=== PATIENT | female | born 1940 | race African-American/Black ===

== ENCOUNTER 2017-10-20 09:48 | Inpatient (IN) ==
[2017-10-20] MEDS ORDERED: SODIUM CHLORIDE 0.9% 1,000 ML IV STA (10:37)
[2017-10-20 10:50] LABS: Basophils # 0.1 10*3/uL (0.0-0.2); Basophils % 0.5 % (0.0-0.8); Eosinophils # 0.3 10*3/uL (0.0-0.87); Eosinophils % 2.8 % (0.00-10.9); Hematocrit 39.3 VOL% (35.7-47.0); Hemoglobin 13.7 GM/DL (12.0-16.0); Immature Granulocytes % 0.3 %; Immature Granulocytes Absolute 0.03 #; Lymphocytes # 2.5 10*3/uL (1.4-4.0); Mean Corpuscular HGB Conc 34.9 GM/DL (32-36); Mean Corpuscular Hemoglobin 28 PG (27-34); Mean Corpuscular Volume 80.5 FL (87-102); Monocytes # 0.7 10*3/uL (0.11-0.8); Monocytes % 6.4 % (1.7-12.7); Neutrophils # 6.9 10*3/uL (1.4-7.4); Platelet Count 206 T/CUMM (130-400); Red Blood Count 4.88 MC/CUMM (3.8-5.5); Red Cell Distribution Width 13.7 % (9.3-17.3); White Blood Count 10.4 T/CUMM (4-12)
[2017-10-20 11:04] LABS: INR 1.1; PT Patient Result 11.3 SECS; Partial Thromboplastin Time 31.2 SECS (0-40)
[2017-10-20 11:20] LABS: Bilirubin,Total 1.1 MG/DL (0.2-1.0); Osmolality,Calculated 303.4 MOS/KG (273-304); Potassium 4.1 MMOL/L (3.5-5.1); Total Protein 6.7 G/DL (6.4-8.3)
[2017-10-20 12:32] LABS: Troponin I Only < 0.015 NG/ML (0.00-0.045)
[2017-10-20 12:38] LABS: Apearance,Urine CLEAR (Clear); Bilirubin,Urine Negative (Negative); Blood, Urine Small mg/dL (Negative); Glucose,Urine (UA) >=500 mg/dL (Negative); Ketones,Urine 20 mg/dL (Negative); Nitrite,Urine Negative (Negative); Protein,Urine 100 MG/DL; RBC,Urine 2 /HPF (0-4); Urine Color Yellow (Yellow); Urine Specific Gravity 1.018 (1.001-1.035); Urine Urobilinogen < 2.0 EU/DL (0.2-1.0); WBC,Urine <1 /HPF (0-6)
[2017-10-20] MEDS ORDERED: INSULIN REGULAR 100 UNIT/ML IV STA (12:49)
[2017-10-20] MEDS ORDERED: hydrALAZINE 20 MG/1 ML VIAL IV STA (12:49)
[2017-10-20] MEDS ORDERED: INSULIN REGULAR 100 UNIT/ML ONE (13:28)
[2017-10-20] MEDS ORDERED: hydrALAZINE 20 MG/1 ML VIAL ONE (13:35)
[2017-10-20] MEDS ORDERED: DEXTROSE 50% 25 GM/50 ML VIAL IV PRN ×2 (14:19)
[2017-10-20] MEDS ORDERED: MORPHINE 2 MG/1 ML SYRINGE IV PRN (14:19)
[2017-10-20] MEDS ORDERED: ONDANSETRON 4 MG/2 ML VIAL IV PRN (14:19)
[2017-10-20] MEDS ORDERED: DOCUSATE SODIUM 100 MG CAPSULE PO PRN (14:19)
[2017-10-20] MEDS ORDERED: GLUCAGON 1 MG VIAL IM PRN ×2 (14:19)
[2017-10-20] MEDS ORDERED: LACTULOSE 20 GM/30 ML UDCUP PO PRN (14:19)
[2017-10-20] MEDS ORDERED: hydrALAZINE 20 MG/1 ML VIAL IV PRN (15:05)
[2017-10-20 15:24] LABS: Magnesium 1.9 MG/DL (1.8-2.4); Thyroid Stimulating Hormone 2.18 uIU/ml (0.358-3.74)
[2017-10-20] MEDS: PANTOPRAZOLE 40 MG TABLET PO SCH (18:04)
[2017-10-20] MEDS: INSULIN LISPRO 100 UNIT/ML SUBCUT SCH ×2 (18:08→21:02)
[2017-10-20] MEDS: SODIUM CHLORIDE 0.9% 1,000 ML IV SCH (18:08)
[2017-10-20] MEDS: PRAVASTATIN 20 MG TABLET PO SCH (21:01)
[2017-10-21 06:14] LABS: Basophils % 0.3 % (0.0-0.8); Eosinophils # 0.3 10*3/uL (0.0-0.87); Eosinophils % 2.9 % (0.00-10.9); Hematocrit 33.3 VOL% (35.7-47.0); Hemoglobin 11.4 GM/DL (12.0-16.0); Immature Granulocytes % 0.3 %; Immature Granulocytes Absolute 0.03 #; Lymphocytes # 2.9 10*3/uL (1.4-4.0); Lymphocytes % 24.7 % (21.3-54.2); Mean Corpuscular HGB Conc 34.2 GM/DL (32-36); Mean Corpuscular Hemoglobin 28 PG (27-34); Mean Corpuscular Volume 81.4 FL (87-102); Mean Platelet Volume 12.4 FL (9.6-12.0); Monocytes # 0.8 10*3/uL (0.11-0.8); Monocytes % 6.7 % (1.7-12.7); Neutrophils # 7.7 10*3/uL (1.4-7.4); Neutrophils % 65.1 % (38.7-73.9); Platelet Count 177 T/CUMM (130-400); Red Blood Count 4.09 MC/CUMM (3.8-5.5); Red Cell Distribution Width 14.2 % (9.3-17.3); White Blood Count 11.9 T/CUMM (4-12)
[2017-10-21 06:59] LABS: Calcium 9.1 MG/DL (8.5-10.1); Osmolality,Calculated 291.8 MOS/KG (273-304); Potassium 3.9 MMOL/L (3.5-5.1); Risk Ratio 5.78; VLDL CHOLESTEROL 36.8 MG/DL
[2017-10-21] MEDS ORDERED: INSULIN GLARGINE 100 UNIT/ML SUBCUT SCH (09:00)
[2017-10-21] MEDS ORDERED: FUROSEMIDE 40 MG TABLET PO SCH (09:00)
[2017-10-21] MEDS: OXYBUTYNIN 5 MG TABLET PO SCH (09:03)
[2017-10-21] MEDS: LISINOPRIL 5 MG TABLET PO SCH (09:03)
[2017-10-21] MEDS: PANTOPRAZOLE 40 MG TABLET PO SCH (09:03)
[2017-10-21] MEDS: INSULIN GLARGINE 100 UNIT/ML SUBCUT SCH (09:04)
[2017-10-21] MEDS: INSULIN LISPRO 100 UNIT/ML SUBCUT SCH ×4 (09:08→21:20)
[2017-10-21] MEDS: SODIUM CHLORIDE 0.9% 1,000 ML IV SCH ×3 (09:08→16:40)
[2017-10-21] MEDS: LATANOPROST 0.005% OPH SOLN 2.5 ML BOTTLE BOTH EYES SCH (21:19)
[2017-10-21] MEDS: PRAVASTATIN 20 MG TABLET PO SCH (21:19)
[2017-10-22] MEDS: SODIUM CHLORIDE 0.9% 1,000 ML IV SCH ×3 (01:02→16:28)
[2017-10-22 05:28] LABS: Basophils # 0.1 10*3/uL (0.0-0.2); Basophils % 0.6 % (0.0-0.8); Eosinophils # 0.5 10*3/uL (0.0-0.87); Eosinophils % 4.5 % (0.00-10.9); Hematocrit 31.6 VOL% (35.7-47.0); Hemoglobin 10.6 GM/DL (12.0-16.0); Immature Granulocytes % 0.3 %; Immature Granulocytes Absolute 0.03 #; Lymphocytes # 3.3 10*3/uL (1.4-4.0); Lymphocytes % 31.7 % (21.3-54.2); Mean Corpuscular HGB Conc 33.5 GM/DL (32-36); Mean Corpuscular Hemoglobin 28 PG (27-34); Mean Corpuscular Volume 82.7 FL (87-102); Mean Platelet Volume 12.5 FL (9.6-12.0); Monocytes # 0.7 10*3/uL (0.11-0.8); Monocytes % 7.1 % (1.7-12.7); Neutrophils # 5.8 10*3/uL (1.4-7.4); Neutrophils % 55.8 % (38.7-73.9); Platelet Count 160 T/CUMM (130-400); Red Blood Count 3.82 MC/CUMM (3.8-5.5); Red Cell Distribution Width 14.1 % (9.3-17.3); White Blood Count 10.4 T/CUMM (4-12)
[2017-10-22 05:53] LABS: Calcium 7.9 MG/DL (8.5-10.1); Osmolality,Calculated 289.7 MOS/KG (273-304); Potassium 3.6 MMOL/L (3.5-5.1)
[2017-10-22] MEDS: OXYBUTYNIN 5 MG TABLET PO SCH (08:46)
[2017-10-22] MEDS: PANTOPRAZOLE 40 MG TABLET PO SCH (08:46)
[2017-10-22] MEDS: LISINOPRIL 5 MG TABLET PO SCH (08:46)
[2017-10-22] MEDS: INSULIN GLARGINE 100 UNIT/ML SUBCUT SCH (08:48)
[2017-10-22] MEDS: INSULIN LISPRO 100 UNIT/ML SUBCUT SCH ×4 (08:49→20:50)
[2017-10-22] MEDS: ACETAMINOPHEN 325 MG TABLET PO PRN (15:29)
[2017-10-22] MEDS: PRAVASTATIN 20 MG TABLET PO SCH (20:27)
[2017-10-22] MEDS: LATANOPROST 0.005% OPH SOLN 2.5 ML BOTTLE BOTH EYES SCH (20:29)
[2017-10-23] MEDS: SODIUM CHLORIDE 0.9% 1,000 ML IV SCH ×3 (01:19→17:35)
[2017-10-23 07:09] LABS: Basophils % 0.4 % (0.0-0.8); Eosinophils # 0.5 10*3/uL (0.0-0.87); Eosinophils % 4.7 % (0.00-10.9); Hematocrit 30.6 VOL% (35.7-47.0); Hemoglobin 10.2 GM/DL (12.0-16.0); Immature Granulocytes % 0.2 %; Immature Granulocytes Absolute 0.02 #; Lymphocytes % 31.8 % (21.3-54.2); Mean Corpuscular HGB Conc 33.3 GM/DL (32-36); Mean Corpuscular Hemoglobin 28 PG (27-34); Mean Corpuscular Volume 83.2 FL (87-102); Mean Platelet Volume 12.2 FL (9.6-12.0); Monocytes # 0.7 10*3/uL (0.11-0.8); Neutrophils # 5.3 10*3/uL (1.4-7.4); Neutrophils % 55.9 % (38.7-73.9); Platelet Count 159 T/CUMM (130-400); Red Blood Count 3.68 MC/CUMM (3.8-5.5); Red Cell Distribution Width 13.9 % (9.3-17.3); White Blood Count 9.5 T/CUMM (4-12)
[2017-10-23 07:34] LABS: Calcium 7.9 MG/DL (8.5-10.1); Osmolality,Calculated 288.7 MOS/KG (273-304); Potassium 3.5 MMOL/L (3.5-5.1)
[2017-10-23] MEDS: INSULIN LISPRO 100 UNIT/ML SUBCUT SCH ×4 (08:36→23:08)
[2017-10-23] MEDS: INSULIN GLARGINE 100 UNIT/ML SUBCUT SCH (09:00)
[2017-10-23] MEDS: OXYBUTYNIN 5 MG TABLET PO SCH (09:35)
[2017-10-23] MEDS: FLUCONAZOLE 100 MG TABLET PO SCH (09:35)
[2017-10-23] MEDS: PANTOPRAZOLE 40 MG TABLET PO SCH (09:35)
[2017-10-23] MEDS: LISINOPRIL 5 MG TABLET PO SCH (09:35)
[2017-10-23] MEDS: ACETAMINOPHEN 325 MG TABLET PO PRN (10:35)
[2017-10-23] MEDS ORDERED: CETIRIZINE 5 MG TABLET PO PRN (15:45)
[2017-10-23] MEDS: SODIUM CHLORIDE 0.65% NASAL SPRAY 45 ML BOTTLE BOTH NARES SCH ×2 (17:30→21:03)
[2017-10-23] MEDS: PRAVASTATIN 20 MG TABLET PO SCH (21:03)
[2017-10-23] MEDS: LATANOPROST 0.005% OPH SOLN 2.5 ML BOTTLE BOTH EYES SCH (21:03)
[2017-10-24] MEDS: SODIUM CHLORIDE 0.9% 1,000 ML IV SCH (01:35)
[2017-10-24] MEDS: PANTOPRAZOLE 40 MG TABLET PO SCH (09:02)
[2017-10-24] MEDS: OXYBUTYNIN 5 MG TABLET PO SCH (09:02)
[2017-10-24] MEDS: FLUCONAZOLE 100 MG TABLET PO SCH (09:02)
[2017-10-24] MEDS: LISINOPRIL 5 MG TABLET PO SCH (09:02)
[2017-10-24] MEDS: SODIUM CHLORIDE 0.65% NASAL SPRAY 45 ML BOTTLE BOTH NARES SCH ×2 (09:03→15:35)
[2017-10-24] MEDS: INSULIN GLARGINE 100 UNIT/ML SUBCUT SCH (09:03)
[2017-10-24] MEDS: INSULIN LISPRO 100 UNIT/ML SUBCUT SCH ×2 (09:03→15:35)
[2017-10-24 11:42] VITALS: BP 153/70
== END 2017-10-24 15:15 | disposition home health service (06) | DRG 684 ==
LOC: EDUNIT# → EDBD → N.ED 09:48 → N.EDINP 09:48 → N.2E 14:14 → SUATTDRO 16:52
PROVIDERS: ADMIT Internal Medicine; ATTEND Hospitalist

== ENCOUNTER 2017-10-30 08:44 | Observation (INO) ==
[2017-10-30 09:17] LABS: Basophils # 0.1 10*3/uL (0.0-0.2); Basophils % 0.7 % (0.0-0.8); Eosinophils # 0.1 10*3/uL (0.0-0.87); Eosinophils % 0.6 % (0.00-10.9); Hematocrit 38.4 VOL% (35.7-47.0); Hemoglobin 13.2 GM/DL (12.0-16.0); Immature Granulocytes % 0.6 %; Immature Granulocytes Absolute 0.06 #; Lymphocytes # 1.5 10*3/uL (1.4-4.0); Mean Corpuscular HGB Conc 34.4 GM/DL (32-36); Mean Corpuscular Hemoglobin 28 PG (27-34); Mean Corpuscular Volume 81.5 FL (87-102); Mean Platelet Volume 10.8 FL (9.6-12.0); Monocytes # 0.7 10*3/uL (0.11-0.8); Monocytes % 6.5 % (1.7-12.7); Neutrophils # 8.2 10*3/uL (1.4-7.4); Neutrophils % 77.6 % (38.7-73.9); Platelet Count 409 T/CUMM (130-400); Red Blood Count 4.71 MC/CUMM (3.8-5.5); Red Cell Distribution Width 15.2 % (9.3-17.3); White Blood Count 10.6 T/CUMM (4-12)
[2017-10-30] MEDS ORDERED: hydrALAZINE 20 MG/1 ML VIAL IV STA (09:44)
[2017-10-30] MEDS ORDERED: hydrALAZINE 20 MG/1 ML VIAL ONE (09:50)
[2017-10-30 09:55] LABS: Albumin 2.9 G/DL (3.4-5.0); Bilirubin,Total 0.7 MG/DL (0.2-1.0); Magnesium 1.5 MG/DL (1.8-2.4); Total Protein 6.1 G/DL (6.4-8.3)
[2017-10-30 09:56] LABS: Osmolality,Calculated 289.7 MOS/KG (273-304); Potassium 3.4 MMOL/L (3.5-5.1)
[2017-10-30 10:46] LABS: Apearance,Urine CLOUDY (Clear); Bacteria,Urine Few /HPF (Few); Bilirubin,Urine Negative (Negative); Blood, Urine Moderate mg/dL (Negative); Glucose,Urine (UA) 150 mg/dL (Negative); Ketones,Urine Negative (Negative); Mucus,Urine Occasional /LPF (Occasional); Nitrite,Urine Negative (Negative); Protein,Urine >=500 MG/DL; RBC,Urine 22 /HPF (0-4); Squamous Epithelial Cell,Urine Occasional /HPF (0-10); Urine Color Yellow (Yellow); Urine Specific Gravity 1.018 (1.001-1.035); WBC,Urine 105 /HPF (0-6)
[2017-10-30] MEDS ORDERED: DOCUSATE SODIUM 100 MG CAPSULE PO PRN (12:00)
[2017-10-30] MEDS ORDERED: ONDANSETRON 4 MG/2 ML VIAL IV PRN (12:00)
[2017-10-30] MEDS ORDERED: DEXTROSE 50% 25 GM/50 ML VIAL IV PRN (12:00)
[2017-10-30] MEDS ORDERED: ACETAMINOPHEN 325 MG TABLET PO PRN (12:00)
[2017-10-30] MEDS ORDERED: GLUCAGON 1 MG VIAL IM PRN (12:00)
[2017-10-30] MEDS ORDERED: POTASSIUM CHLORIDE 20 MEQ TABLET PO ONE (13:44)
[2017-10-31] MEDS ORDERED: PANTOPRAZOLE 40 MG TABLET PO SCH (09:00)
[2017-10-31 10:53] LABS: Calcium 8.6 MG/DL (8.5-10.1); Potassium 3.7 MMOL/L (3.5-5.1)
[2017-10-31] MEDS ORDERED: DOCUSATE SODIUM 100 MG CAPSULE PO PRN (11:15)
[2017-10-31] MEDS ORDERED: SIMETHICONE CHEW 125 MG TABLET PO PRN (11:15)
[2017-10-31] MEDS ORDERED: LISINOPRIL 5 MG TABLET PO SCH (11:30)
[2017-10-31] MEDS ORDERED: OXYBUTYNIN 5 MG TABLET PO SCH (11:30)
[2017-10-31] MEDS ORDERED: BISACODYL 5 MG TABLET PO SCH (11:30)
[2017-10-31 13:46] VITALS: BP 187/77
[2017-10-31] MEDS ORDERED: PRAVASTATIN 20 MG TABLET PO SCH (21:00)
[2017-10-31] MEDS ORDERED: LATANOPROST 0.005% OPH SOLN 2.5 ML BOTTLE BOTH EYES SCH (21:00)
== END 2017-10-31 14:55 | disposition home or self-care (01) ==
LOC: EDBD → EDUNIT# → N.ED 08:44 → INTOOBSV 10:02 → N.EDINP 10:02 → N.4E 13:22
PROVIDERS: ADMIT Internal Medicine Geriatric Medicine; ATTEND Internal Medicine Geriatric Medicine

== ENCOUNTER 2018-09-02 14:04 | Observation (INO) ==
[2018-09-02] MEDS ORDERED: DEXTROSE 5% 1,000 ML IV SCH ×2 (15:10→19:00)
[2018-09-02 16:43] LABS: Basophils % 0.4 % (0.0-0.8); Eosinophils # 0.1 10*3/uL (0.0-0.87); Eosinophils % 1.1 % (0.00-10.9); Hematocrit 41.2 VOL% (35.7-47.0); Hemoglobin 13.5 GM/DL (12.0-16.0); Immature Granulocytes % 0.3 %; Immature Granulocytes Absolute 0.03 #; Lymphocytes # 1.9 10*3/uL (1.4-4.0); Lymphocytes % 17.8 % (21.3-54.2); Mean Corpuscular HGB Conc 32.8 GM/DL (32-36); Mean Corpuscular Hemoglobin 28 PG (27-34); Mean Corpuscular Volume 85.5 FL (87-102); Monocytes # 0.5 10*3/uL (0.11-0.8); Monocytes % 4.8 % (1.7-12.7); Neutrophils % 75.6 % (38.7-73.9); Platelet Count 290 T/CUMM (130-400); Red Blood Count 4.82 MC/CUMM (3.8-5.5); Red Cell Distribution Width 14.8 % (9.3-17.3); White Blood Count 10.6 T/CUMM (4-12)
[2018-09-02 17:05] LABS: Calcium 9.8 MG/DL (8.5-10.1); Osmolality,Calculated 292.7 MOS/KG (273-304); Potassium 3.3 MMOL/L (3.5-5.1)
[2018-09-02 17:27] LABS: Apearance,Urine CLOUDY (Clear); Bacteria,Urine Occasional /HPF (Few); Bilirubin,Urine Negative (Negative); Blood, Urine Large mg/dL (Negative); Glucose,Urine (UA) Negative (Negative); Ketones,Urine Negative (Negative); Nitrite,Urine Negative (Negative); Protein,Urine >=500 MG/DL; RBC,Urine 143 /HPF (0-4); Squamous Epithelial Cell,Urine Occasional /HPF (0-10); Urine Color Yellow (Yellow); Urine Specific Gravity 1.005 (1.001-1.035); Urine Urobilinogen < 2.0 EU/DL (0.2-1.0); WBC,Urine 16 /HPF (0-6)
[2018-09-02] MEDS ORDERED: GLUCAGON 1 MG VIAL IM PRN (18:20)
[2018-09-02] MEDS ORDERED: hydrOXYzine HCL 25 MG TABLET PO PRN (18:22)
[2018-09-02] MEDS ORDERED: DOCUSATE SODIUM 100 MG CAPSULE PO PRN (18:22)
[2018-09-02] MEDS ORDERED: ACETAMINOPHEN/diphenhydrAMINE 500-25 MG TABLET PO PRN (18:22)
[2018-09-02] MEDS ORDERED: SIMETHICONE CHEW 125 MG TABLET PO PRN (18:22)
[2018-09-02] MEDS ORDERED: LISINOPRIL 10 MG TABLET PO STA (18:33)
[2018-09-02] MEDS ORDERED: POTASSIUM CHLORIDE INJ 40 MEQ in SODIUM CHLORIDE 0.45% 1,000 ML IV SCH (21:00)
[2018-09-02] MEDS ORDERED: INSULIN GLARGINE 100 UNIT/ML SUBCUT SCH (21:00)
[2018-09-02] MEDS: METOPROLOL TARTRATE 50 MG TABLET PO SCH (22:51)
[2018-09-02] MEDS: cefTRIAXone 1,000 MG in SYRINGE 1 EACH IV SCH (22:51)
[2018-09-02] MEDS: INSULIN REGULAR 100 UNIT/ML SUBCUT SCH (22:53)
[2018-09-02] MEDS: LATANOPROST 0.005% OPH SOLN 2.5 ML BOTTLE BOTH EYES SCH (23:02)
[2018-09-03] MEDS: DEXTROSE 50% 25 GM/50 ML VIAL IV PRN ×4 (00:17→09:40)
[2018-09-03 06:20] LABS: Calcium 8.7 MG/DL (8.5-10.1); Osmolality,Calculated 295.6 MOS/KG (273-304); Potassium 3.4 MMOL/L (3.5-5.1)
[2018-09-03 07:16] LABS: Basophils # 0.1 10*3/uL (0.0-0.2); Basophils % 0.6 % (0.0-0.8); Eosinophils # 0.9 10*3/uL (0.0-0.87); Eosinophils % 9.4 % (0.00-10.9); Hematocrit 29.8 VOL% (35.7-47.0); Immature Granulocytes % 0.2 %; Immature Granulocytes Absolute 0.02 #; Lymphocytes # 3.3 10*3/uL (1.4-4.0); Lymphocytes % 33.3 % (21.3-54.2); Mean Corpuscular HGB Conc 31.5 GM/DL (32-36); Mean Corpuscular Hemoglobin 27 PG (27-34); Mean Corpuscular Volume 85.4 FL (87-102); Mean Platelet Volume 11.8 FL (9.6-12.0); Monocytes # 0.7 10*3/uL (0.11-0.8); Monocytes % 6.5 % (1.7-12.7)
[2018-09-03 07:20] LABS: Hemoglobin 9.4 GM/DL (12.0-16.0); Platelet Count 219 T/CUMM (130-400); Red Blood Count 3.49 MC/CUMM (3.8-5.5)
[2018-09-03] MEDS ORDERED: POTASSIUM CHLORIDE 20 MEQ TABLET PO ONE (08:36)
[2018-09-03] MEDS: FAMOTIDINE 20 MG TABLET PO SCH (10:02)
[2018-09-03] MEDS: METOPROLOL TARTRATE 50 MG TABLET PO SCH ×2 (10:03→22:02)
[2018-09-03] MEDS: MULTIVITAMIN (CENTRUM) TABLET PO SCH (10:03)
[2018-09-03] MEDS: FUROSEMIDE 40 MG TABLET PO SCH (10:03)
[2018-09-03] MEDS: LISINOPRIL 5 MG TABLET PO SCH (10:03)
[2018-09-03] MEDS: INSULIN REGULAR 100 UNIT/ML SUBCUT SCH (10:04)
[2018-09-03] MEDS ORDERED: DEXTROSE 5% 1,000 ML IV SCH (11:00)
[2018-09-03] MEDS: cefTRIAXone 1,000 MG in SYRINGE 1 EACH IV SCH ×2 (12:50→21:52)
[2018-09-03] MEDS: hydrALAZINE 20 MG/1 ML VIAL IV PRN (15:22)
[2018-09-03] MEDS: PRAVASTATIN 20 MG TABLET PO SCH (18:08)
[2018-09-03] MEDS: LATANOPROST 0.005% OPH SOLN 2.5 ML BOTTLE BOTH EYES SCH (21:53)
[2018-09-04] MEDS: hydrALAZINE 20 MG/1 ML VIAL IV PRN ×2 (04:28→14:03)
[2018-09-04 05:26] LABS: Hemoglobin 10.3 GM/DL (12.0-16.0); Red Blood Count 3.69 MC/CUMM (3.8-5.5); White Blood Count 11.1 T/CUMM (4-12)
[2018-09-04 05:27] LABS: Basophils # 0.1 10*3/uL (0.0-0.2); Basophils % 0.6 % (0.0-0.8); Eosinophils # 1.1 10*3/uL (0.0-0.87); Eosinophils % 9.6 % (0.00-10.9); Immature Granulocytes % 0.4 %; Immature Granulocytes Absolute 0.04 #; Lymphocytes # 3.6 10*3/uL (1.4-4.0); Mean Corpuscular HGB Conc 32.2 GM/DL (32-36); Mean Corpuscular Hemoglobin 28 PG (27-34); Mean Corpuscular Volume 86.7 FL (87-102); Mean Platelet Volume 11.8 FL (9.6-12.0); Monocytes # 0.7 10*3/uL (0.11-0.8); Monocytes % 6.1 % (1.7-12.7); Neutrophils # 5.7 10*3/uL (1.4-7.4); Neutrophils % 51.3 % (38.7-73.9); Platelet Count 214 T/CUMM (130-400); Red Cell Distribution Width 15.1 % (9.3-17.3)
[2018-09-04 05:56] LABS: Osmolality,Calculated 293.1 MOS/KG (273-304); Potassium 4.1 MMOL/L (3.5-5.1)
[2018-09-04 05:57] LABS: Risk Ratio 6.2
[2018-09-04] MEDS ORDERED: MAGNESIUM SULF RIDER 4 GM in PREMIX 1 EACH IV PRN (08:44)
[2018-09-04] MEDS ORDERED: MAGNESIUM SULF RIDER 2 GM in PREMIX 1 EACH IV PRN (08:44)
[2018-09-04] MEDS: FUROSEMIDE 40 MG TABLET PO SCH (10:16)
[2018-09-04] MEDS: FAMOTIDINE 20 MG TABLET PO SCH (10:16)
[2018-09-04] MEDS: MULTIVITAMIN (CENTRUM) TABLET PO SCH (10:16)
[2018-09-04] MEDS: METOPROLOL TARTRATE 50 MG TABLET PO SCH ×2 (10:16→21:13)
[2018-09-04] MEDS: LISINOPRIL 5 MG TABLET PO SCH (10:20)
[2018-09-04] MEDS: cefTRIAXone 1,000 MG in SYRINGE 1 EACH IV SCH (10:33)
[2018-09-04] MEDS ORDERED: GLUCAGON 1 MG VIAL IM PRN (15:35)
[2018-09-04] MEDS: PRAVASTATIN 20 MG TABLET PO SCH (18:19)
[2018-09-04] MEDS: amLODIPine 5 MG TABLET PO SCH (18:19)
[2018-09-04] MEDS: INSULIN LISPRO 100 UNIT/ML SUBCUT SCH (18:20)
[2018-09-04] MEDS: LATANOPROST 0.005% OPH SOLN 2.5 ML BOTTLE BOTH EYES SCH (21:13)
[2018-09-04] MEDS: AMOXICILLIN 875 MG TABLET PO SCH (21:13)
[2018-09-05 05:39] LABS: Basophils # 0.1 10*3/uL (0.0-0.2); Basophils % 0.7 % (0.0-0.8); Eosinophils # 1.2 10*3/uL (0.0-0.87); Eosinophils % 11.2 % (0.00-10.9); Hematocrit 33.5 VOL% (35.7-47.0); Hemoglobin 10.8 GM/DL (12.0-16.0); Immature Granulocytes % 0.3 %; Immature Granulocytes Absolute 0.03 #; Lymphocytes # 3.5 10*3/uL (1.4-4.0); Lymphocytes % 33.1 % (21.3-54.2); Mean Corpuscular HGB Conc 32.2 GM/DL (32-36); Mean Corpuscular Hemoglobin 28 PG (27-34); Mean Corpuscular Volume 85.2 FL (87-102); Mean Platelet Volume 12.5 FL (9.6-12.0); Monocytes # 0.7 10*3/uL (0.11-0.8); Monocytes % 6.3 % (1.7-12.7); Neutrophils # 5.2 10*3/uL (1.4-7.4); Neutrophils % 48.4 % (38.7-73.9); Platelet Count 238 T/CUMM (130-400); Red Blood Count 3.93 MC/CUMM (3.8-5.5); Red Cell Distribution Width 14.9 % (9.3-17.3); White Blood Count 10.7 T/CUMM (4-12)
[2018-09-05 05:51] LABS: Calcium 9.2 MG/DL (8.5-10.1)
[2018-09-05] MEDS: INSULIN LISPRO 100 UNIT/ML SUBCUT SCH ×2 (08:17→12:42)
[2018-09-05 08:31] LABS: Eosinophils 14 % (0-10); Hypochromasia 1+; Lymphocytes 31 % (20-55); Segmented Neutrophils 53 % (50-85); Total Cells Counted 100
[2018-09-05 08:32] LABS: Anisocytosis 1+; Microcytosis 1+
[2018-09-05] MEDS: FAMOTIDINE 20 MG TABLET PO SCH (09:03)
[2018-09-05] MEDS: amLODIPine 5 MG TABLET PO SCH (09:04)
[2018-09-05] MEDS: METOPROLOL TARTRATE 50 MG TABLET PO SCH (09:04)
[2018-09-05] MEDS: AMOXICILLIN 875 MG TABLET PO SCH (09:04)
[2018-09-05] MEDS: LISINOPRIL 5 MG TABLET PO SCH (09:04)
[2018-09-05] MEDS: FUROSEMIDE 40 MG TABLET PO SCH (09:04)
[2018-09-05] MEDS: MULTIVITAMIN (CENTRUM) TABLET PO SCH (09:04)
[2018-09-05 15:33] VITALS: BP 141/63
== END 2018-09-05 16:00 | disposition home or self-care (01) ==
LOC: EDBD → EDUNIT# → N.EDINP 14:04 → N.ED 14:04 → SUATTDRO 18:20 → N.3E 19:58
PROVIDERS: ADMIT Internal Medicine; ATTEND Internal Medicine

== ENCOUNTER 2018-09-22 16:43 | Inpatient (IN) ==
[2018-09-22] MEDS ORDERED: DEXTROSE 50% 25 GM/50 ML SYRINGE IV ONE (16:57)
[2018-09-22] MEDS ORDERED: DEXTROSE 50% 25 GM/50 ML VIAL IV STA (17:00)
[2018-09-22 17:43] LABS: Basophils # 0.1 10*3/uL (0.0-0.2); Basophils % 0.4 % (0.0-0.8); Eosinophils # 0.6 10*3/uL (0.0-0.87); Eosinophils % 3.8 % (0.00-10.9); Hematocrit 41.3 VOL% (35.7-47.0); Hemoglobin 13.2 GM/DL (12.0-16.0); Immature Granulocytes % 0.3 %; Immature Granulocytes Absolute 0.05 #; Lymphocytes # 1.9 10*3/uL (1.4-4.0); Lymphocytes % 12.6 % (21.3-54.2); Mean Corpuscular Hemoglobin 27 PG (27-34); Mean Corpuscular Volume 85.3 FL (87-102); Mean Platelet Volume 11.9 FL (9.6-12.0); Monocytes # 0.8 10*3/uL (0.11-0.8); Monocytes % 5.5 % (1.7-12.7); Neutrophils # 11.5 10*3/uL (1.4-7.4); Neutrophils % 77.4 % (38.7-73.9); Platelet Count 343 T/CUMM (130-400); Red Blood Count 4.84 MC/CUMM (3.8-5.5); Red Cell Distribution Width 14.7 % (9.3-17.3); White Blood Count 14.9 T/CUMM (4-12)
[2018-09-22 17:58] LABS: Calcium 10.2 MG/DL (8.5-10.1); Osmolality,Calculated 293.6 MOS/KG (273-304)
[2018-09-22 18:13] LABS: Apearance,Urine CLEAR (Clear); Bilirubin,Urine Negative (Negative); Blood, Urine Small mg/dL (Negative); Glucose,Urine (UA) Negative (Negative); Ketones,Urine 5 mg/dL (Negative); Nitrite,Urine Negative (Negative); Protein,Urine >=500 MG/DL; RBC,Urine 2 /HPF (0-4); Urine Color Yellow (Yellow); Urine Urobilinogen < 2.0 EU/DL (0.2-1.0); WBC,Urine 1 /HPF (0-6)
[2018-09-22] MEDS ORDERED: DEXTROSE 5% NACL 0.45% 1,000 ML IV SCH (18:30)
[2018-09-22] MEDS ORDERED: ONDANSETRON 4 MG/2 ML VIAL IV PRN (18:37)
[2018-09-22] MEDS ORDERED: SIMETHICONE CHEW 125 MG TABLET PO PRN (18:38)
[2018-09-22] MEDS ORDERED: hydrALAZINE 20 MG/1 ML VIAL IV PRN (18:39)
[2018-09-22] MEDS ORDERED: DEXTROSE 50% 25 GM/50 ML VIAL IV PRN (18:40)
[2018-09-22] MEDS ORDERED: GLUCAGON 1 MG VIAL IM PRN (18:40)
[2018-09-22] MEDS ORDERED: LISINOPRIL 10 MG TABLET PO STA (18:44)
[2018-09-22] MEDS ORDERED: amLODIPine 5 MG TABLET PO STA (18:44)
[2018-09-22] MEDS ORDERED: INSULIN REGULAR 100 UNIT/ML SUBCUT SCH (21:00)
[2018-09-22] MEDS: LATANOPROST 0.005% OPH SOLN 2.5 ML BOTTLE BOTH EYES SCH (21:41)
[2018-09-22] MEDS: ENOXAPARIN 40 MG/0.4 ML SYRINGE SUBCUT SCH (21:42)
[2018-09-22] MEDS: INSULIN REGULAR 100 UNIT/ML SUBCUT SCH (21:44)
[2018-09-23] MEDS: INSULIN REGULAR 100 UNIT/ML SUBCUT SCH ×4 (07:48→21:32)
[2018-09-23] MEDS: MULTIVITAMIN (CENTRUM) TABLET PO SCH (08:46)
[2018-09-23] MEDS: LISINOPRIL 5 MG TABLET PO SCH (08:46)
[2018-09-23] MEDS: amLODIPine 10 MG TABLET PO SCH (08:46)
[2018-09-23] MEDS: METOPROLOL TARTRATE 50 MG TABLET PO SCH ×2 (08:48→21:32)
[2018-09-23 10:14] LABS: Basophils # 0.1 10*3/uL (0.0-0.2); Basophils % 0.6 % (0.0-0.8); Eosinophils % 9.7 % (0.00-10.9); Hematocrit 34.7 VOL% (35.7-47.0); Hemoglobin 11.1 GM/DL (12.0-16.0); Immature Granulocytes % 0.3 %; Immature Granulocytes Absolute 0.03 #; Lymphocytes # 2.4 10*3/uL (1.4-4.0); Mean Corpuscular Hemoglobin 27 PG (27-34); Mean Corpuscular Volume 85.5 FL (87-102); Mean Platelet Volume 12.1 FL (9.6-12.0); Monocytes # 0.6 10*3/uL (0.11-0.8); Monocytes % 5.8 % (1.7-12.7); Neutrophils % 59.6 % (38.7-73.9); Platelet Count 256 T/CUMM (130-400); Red Blood Count 4.06 MC/CUMM (3.8-5.5); Red Cell Distribution Width 14.8 % (9.3-17.3); White Blood Count 10.1 T/CUMM (4-12)
[2018-09-23 10:47] LABS: Calcium 9.4 MG/DL (8.5-10.1); Potassium 4.3 MMOL/L (3.5-5.1)
[2018-09-23] MEDS: PRAVASTATIN 20 MG TABLET PO SCH (17:58)
[2018-09-23] MEDS: ENOXAPARIN 40 MG/0.4 ML SYRINGE SUBCUT SCH (21:33)
[2018-09-23] MEDS: LATANOPROST 0.005% OPH SOLN 2.5 ML BOTTLE BOTH EYES SCH (21:33)
[2018-09-24] MEDS: INSULIN REGULAR 100 UNIT/ML SUBCUT SCH ×4 (10:01→21:26)
[2018-09-24] MEDS: amLODIPine 10 MG TABLET PO SCH (10:05)
[2018-09-24] MEDS: LISINOPRIL 5 MG TABLET PO SCH (10:05)
[2018-09-24] MEDS: METOPROLOL TARTRATE 50 MG TABLET PO SCH ×2 (10:05→21:26)
[2018-09-24] MEDS: MULTIVITAMIN (CENTRUM) TABLET PO SCH (10:05)
[2018-09-24] MEDS: PRAVASTATIN 20 MG TABLET PO SCH (17:22)
[2018-09-24] MEDS: ENOXAPARIN 40 MG/0.4 ML SYRINGE SUBCUT SCH (21:25)
[2018-09-24] MEDS: LATANOPROST 0.005% OPH SOLN 2.5 ML BOTTLE BOTH EYES SCH (21:26)
[2018-09-25] MEDS: INSULIN REGULAR 100 UNIT/ML SUBCUT SCH ×4 (07:27→21:36)
[2018-09-25] MEDS: LISINOPRIL 5 MG TABLET PO SCH ×2 (08:01→21:36)
[2018-09-25] MEDS: amLODIPine 10 MG TABLET PO SCH (08:02)
[2018-09-25] MEDS: METOPROLOL TARTRATE 50 MG TABLET PO SCH ×2 (08:02→21:36)
[2018-09-25] MEDS: MULTIVITAMIN (CENTRUM) TABLET PO SCH (08:02)
[2018-09-25] MEDS ORDERED: SODIUM CHLORIDE 0.45% 500 ML IV ONE (09:08)
[2018-09-25] MEDS: PRAVASTATIN 20 MG TABLET PO SCH (17:23)
[2018-09-25] MEDS: LATANOPROST 0.005% OPH SOLN 2.5 ML BOTTLE BOTH EYES SCH (21:36)
[2018-09-25] MEDS: ENOXAPARIN 40 MG/0.4 ML SYRINGE SUBCUT SCH (21:36)
[2018-09-26 04:55] LABS: Basophils # 0.1 10*3/uL (0.0-0.2); Basophils % 0.7 % (0.0-0.8); Eosinophils # 0.9 10*3/uL (0.0-0.87); Eosinophils % 8.9 % (0.00-10.9); Hematocrit 30.1 VOL% (35.7-47.0); Hemoglobin 9.6 GM/DL (12.0-16.0); Immature Granulocytes % 0.3 %; Immature Granulocytes Absolute 0.03 #; Lymphocytes # 3.3 10*3/uL (1.4-4.0); Lymphocytes % 31.9 % (21.3-54.2); Mean Corpuscular HGB Conc 31.9 GM/DL (32-36); Mean Corpuscular Hemoglobin 28 PG (27-34); Mean Corpuscular Volume 86.2 FL (87-102); Mean Platelet Volume 11.8 FL (9.6-12.0); Monocytes # 0.6 10*3/uL (0.11-0.8); Neutrophils # 5.4 10*3/uL (1.4-7.4); Neutrophils % 52.2 % (38.7-73.9); Platelet Count 259 T/CUMM (130-400); Red Blood Count 3.49 MC/CUMM (3.8-5.5); Red Cell Distribution Width 14.8 % (9.3-17.3); White Blood Count 10.4 T/CUMM (4-12)
[2018-09-26 05:20] LABS: Calcium 8.5 MG/DL (8.5-10.1); Osmolality,Calculated 296.6 MOS/KG (273-304); Potassium 3.9 MMOL/L (3.5-5.1)
[2018-09-26] MEDS: INSULIN REGULAR 100 UNIT/ML SUBCUT SCH ×4 (07:07→21:48)
[2018-09-26] MEDS: amLODIPine 10 MG TABLET PO SCH (09:18)
[2018-09-26] MEDS: MULTIVITAMIN (CENTRUM) TABLET PO SCH (09:19)
[2018-09-26] MEDS: LISINOPRIL 5 MG TABLET PO SCH (09:19)
[2018-09-26] MEDS: METOPROLOL TARTRATE 50 MG TABLET PO SCH ×2 (09:19→21:48)
[2018-09-26] MEDS: PRAVASTATIN 20 MG TABLET PO SCH (17:05)
[2018-09-26] MEDS: ENOXAPARIN 40 MG/0.4 ML SYRINGE SUBCUT SCH (21:48)
[2018-09-26] MEDS: LISINOPRIL 10 MG TABLET PO SCH (21:48)
[2018-09-26] MEDS: LATANOPROST 0.005% OPH SOLN 2.5 ML BOTTLE BOTH EYES SCH (22:46)
[2018-09-27] MEDS: INSULIN LISPRO 100 UNIT/ML SUBCUT SCH ×4 (07:53→21:43)
[2018-09-27] MEDS: METOPROLOL TARTRATE 50 MG TABLET PO SCH (09:54)
[2018-09-27] MEDS: LISINOPRIL 10 MG TABLET PO SCH ×2 (09:54→21:42)
[2018-09-27] MEDS: MULTIVITAMIN (CENTRUM) TABLET PO SCH (09:54)
[2018-09-27] MEDS: amLODIPine 10 MG TABLET PO SCH (09:55)
[2018-09-27] MEDS: PRAVASTATIN 20 MG TABLET PO SCH (16:50)
[2018-09-27] MEDS: ENOXAPARIN 40 MG/0.4 ML SYRINGE SUBCUT SCH (21:42)
[2018-09-27] MEDS: LATANOPROST 0.005% OPH SOLN 2.5 ML BOTTLE BOTH EYES SCH (21:46)
[2018-09-28 06:17] LABS: Basophils # 0.1 10*3/uL (0.0-0.2); Basophils % 0.8 % (0.0-0.8); Eosinophils # 0.9 10*3/uL (0.0-0.87); Eosinophils % 8.9 % (0.00-10.9); Hematocrit 32.7 VOL% (35.7-47.0); Hemoglobin 10.6 GM/DL (12.0-16.0); Immature Granulocytes % 0.3 %; Immature Granulocytes Absolute 0.03 #; Lymphocytes # 3.5 10*3/uL (1.4-4.0); Lymphocytes % 34.6 % (21.3-54.2); Mean Corpuscular HGB Conc 32.4 GM/DL (32-36); Mean Corpuscular Hemoglobin 28 PG (27-34); Mean Corpuscular Volume 85.2 FL (87-102); Mean Platelet Volume 11.9 FL (9.6-12.0); Monocytes # 0.7 10*3/uL (0.11-0.8); Monocytes % 6.5 % (1.7-12.7); Neutrophils # 4.9 10*3/uL (1.4-7.4); Neutrophils % 48.9 % (38.7-73.9); Platelet Count 273 T/CUMM (130-400); Red Blood Count 3.84 MC/CUMM (3.8-5.5); Red Cell Distribution Width 14.7 % (9.3-17.3)
[2018-09-28 06:40] LABS: Calcium 8.7 MG/DL (8.5-10.1); Osmolality,Calculated 296.6 MOS/KG (273-304); Potassium 3.8 MMOL/L (3.5-5.1)
[2018-09-28] MEDS: INSULIN LISPRO 100 UNIT/ML SUBCUT SCH ×4 (08:18→21:15)
[2018-09-28] MEDS: amLODIPine 10 MG TABLET PO SCH (08:19)
[2018-09-28] MEDS: LISINOPRIL 10 MG TABLET PO SCH ×2 (08:19→21:16)
[2018-09-28] MEDS: MULTIVITAMIN (CENTRUM) TABLET PO SCH (08:19)
[2018-09-28] MEDS ORDERED: METOPROLOL TARTRATE 50 MG TABLET PO SCH (09:00)
[2018-09-28] MEDS ORDERED: METOPROLOL SUCCINATE XL 50 MG TABLET PO SCH (09:00)
[2018-09-28] MEDS: PRAVASTATIN 20 MG TABLET PO SCH (17:37)
[2018-09-28] MEDS: LATANOPROST 0.005% OPH SOLN 2.5 ML BOTTLE BOTH EYES SCH (21:15)
[2018-09-28] MEDS: ENOXAPARIN 40 MG/0.4 ML SYRINGE SUBCUT SCH (21:16)
[2018-09-29 05:40] LABS: Basophils # 0.1 10*3/uL (0.0-0.2); Basophils % 0.8 % (0.0-0.8); Eosinophils # 0.7 10*3/uL (0.0-0.87); Eosinophils % 7.9 % (0.00-10.9); Hematocrit 32.1 VOL% (35.7-47.0); Hemoglobin 10.4 GM/DL (12.0-16.0); Immature Granulocytes % 0.3 %; Immature Granulocytes Absolute 0.03 #; Lymphocytes % 32.6 % (21.3-54.2); Mean Corpuscular HGB Conc 32.4 GM/DL (32-36); Mean Corpuscular Hemoglobin 28 PG (27-34); Mean Corpuscular Volume 85.8 FL (87-102); Mean Platelet Volume 11.5 FL (9.6-12.0); Monocytes # 0.6 10*3/uL (0.11-0.8); Monocytes % 6.5 % (1.7-12.7); Neutrophils # 4.8 10*3/uL (1.4-7.4); Neutrophils % 51.9 % (38.7-73.9); Platelet Count 266 T/CUMM (130-400); Red Blood Count 3.74 MC/CUMM (3.8-5.5); Red Cell Distribution Width 14.6 % (9.3-17.3); White Blood Count 9.3 T/CUMM (4-12)
[2018-09-29 05:56] LABS: Calcium 8.8 MG/DL (8.5-10.1); Osmolality,Calculated 296.7 MOS/KG (273-304); Potassium 4.1 MMOL/L (3.5-5.1)
[2018-09-29] MEDS: INSULIN LISPRO 100 UNIT/ML SUBCUT SCH ×2 (08:13→11:42)
[2018-09-29] MEDS ORDERED: METOPROLOL TARTRATE 50 MG TABLET PO SCH (09:00)
[2018-09-29] MEDS: MULTIVITAMIN (CENTRUM) TABLET PO SCH (09:24)
[2018-09-29] MEDS: amLODIPine 10 MG TABLET PO SCH (09:26)
[2018-09-29] MEDS: LISINOPRIL 10 MG TABLET PO SCH (09:28)
[2018-09-29] MEDS ORDERED: MAGNESIUM SULF RIDER 2 GM in PREMIX 1 EACH IV ONE (10:00)
[2018-09-29] MEDS ORDERED: TUBERCULIN SKIN TEST 0.1 ML SYRINGE INTRADERM ONE (11:00)
[2018-09-29 11:41] VITALS: BP 174/81
== END 2018-09-29 14:04 | disposition home health service (06) | DRG 638 ==
LOC: EDBD → EDUNIT# → N.EDINP 16:43 → N.ED 16:43 → N.2E 19:01
PROVIDERS: ADMIT Internal Medicine; ATTEND Internal Medicine

== ENCOUNTER 2018-11-20 16:36 | Inpatient (IN) ==
[2018-11-20] MEDS ORDERED: CLINDAMYCIN INJ 600 MG in PREMIX 1 EACH IV STA (18:03)
[2018-11-20] MEDS ORDERED: CLINDAMYCIN INJ 50 ML IV ONE (18:09)
[2018-11-20 18:11] LABS: Basophils # 0.1 10*3/uL (0.0-0.2); Basophils % 0.5 % (0.0-0.8); Eosinophils # 0.4 10*3/uL (0.0-0.87); Eosinophils % 3.1 % (0.00-10.9); Hematocrit 38.2 VOL% (35.7-47.0); Hemoglobin 12.5 GM/DL (12.0-16.0); Immature Granulocytes % 0.4 %; Immature Granulocytes Absolute 0.04 #; Lymphocytes # 2.6 10*3/uL (1.4-4.0); Lymphocytes % 23.1 % (21.3-54.2); Mean Corpuscular HGB Conc 32.7 GM/DL (32-36); Mean Corpuscular Hemoglobin 27 PG (27-34); Mean Corpuscular Volume 82.5 FL (87-102); Mean Platelet Volume 11.6 FL (9.6-12.0); Monocytes # 0.7 10*3/uL (0.11-0.8); Monocytes % 5.9 % (1.7-12.7); Neutrophils # 7.5 10*3/uL (1.4-7.4); Platelet Count 290 T/CUMM (130-400); Red Blood Count 4.63 MC/CUMM (3.8-5.5); Red Cell Distribution Width 13.7 % (9.3-17.3); White Blood Count 11.2 T/CUMM (4-12)
[2018-11-20 18:24] LABS: Albumin 2.9 G/DL (3.4-5.0); Bilirubin,Total 0.9 MG/DL (0.2-1.0); Calcium 9.8 MG/DL (8.5-10.1); Osmolality,Calculated 286.5 MOS/KG (273-304); Potassium 3.7 MMOL/L (3.5-5.1); Total Protein 6.5 G/DL (6.4-8.3)
[2018-11-20] MEDS ORDERED: DEXTROSE 50% 25 GM/50 ML VIAL IV PRN (18:28)
[2018-11-20] MEDS ORDERED: ONDANSETRON 4 MG/2 ML VIAL IV PRN (18:28)
[2018-11-20] MEDS ORDERED: GLUCAGON 1 MG VIAL IM PRN (18:28)
[2018-11-20 18:30] LABS: Apearance,Urine Slightly Hazy (Clear); Bacteria,Urine Occasional /HPF (Few); Bilirubin,Urine Negative (Negative); Blood, Urine Moderate mg/dL (Negative); Glucose,Urine (UA) 150 mg/dL (Negative); Ketones,Urine Negative (Negative); Nitrite,Urine Negative (Negative); Protein,Urine >=500 MG/DL; RBC,Urine 101 /HPF (0-4); Squamous Epithelial Cell,Urine Occasional /HPF (0-10); Urine Color Yellow (Yellow); Urine Specific Gravity 1.011 (1.001-1.035); Urine Urobilinogen < 2.0 EU/DL (0.2-1.0); WBC,Urine 3 /HPF (0-6)
[2018-11-20] MEDS ORDERED: hydrALAZINE 20 MG/1 ML VIAL IV STA (18:41)
[2018-11-20] MEDS ORDERED: hydrALAZINE 20 MG/1 ML VIAL ONE (19:42)
[2018-11-20] MEDS: amLODIPine 10 MG TABLET PO SCH (21:23)
[2018-11-20] MEDS: ENOXAPARIN 40 MG/0.4 ML SYRINGE SUBCUT SCH (21:24)
[2018-11-20] MEDS: INSULIN LISPRO 100 UNIT/ML SUBCUT SCH (21:24)
[2018-11-20] MEDS: CEFTAROLINE 400 MG in SODIUM CHLORIDE 0.9% 100 ML IV SCH (21:43)
[2018-11-21 04:37] LABS: Basophils # 0.1 10*3/uL (0.0-0.2); Basophils % 0.5 % (0.0-0.8); Eosinophils # 0.3 10*3/uL (0.0-0.87); Eosinophils % 2.6 % (0.00-10.9); Hematocrit 30.8 VOL% (35.7-47.0); Hemoglobin 10.1 GM/DL (12.0-16.0); Immature Granulocytes % 0.2 %; Immature Granulocytes Absolute 0.02 #; Lymphocytes # 1.6 10*3/uL (1.4-4.0); Lymphocytes % 16.9 % (21.3-54.2); Mean Corpuscular HGB Conc 32.8 GM/DL (32-36); Mean Corpuscular Hemoglobin 27 PG (27-34); Mean Corpuscular Volume 82.4 FL (87-102); Monocytes # 0.6 10*3/uL (0.11-0.8); Monocytes % 6.5 % (1.7-12.7); Neutrophils % 73.3 % (38.7-73.9); Platelet Count 262 T/CUMM (130-400); Red Blood Count 3.74 MC/CUMM (3.8-5.5); Red Cell Distribution Width 13.8 % (9.3-17.3); White Blood Count 9.5 T/CUMM (4-12)
[2018-11-21 05:13] LABS: Calcium 9.1 MG/DL (8.5-10.1); Osmolality,Calculated 288.8 MOS/KG (273-304); Potassium 3.6 MMOL/L (3.5-5.1)
[2018-11-21] MEDS: INSULIN LISPRO 100 UNIT/ML SUBCUT SCH ×4 (07:47→22:27)
[2018-11-21] MEDS: amLODIPine 10 MG TABLET PO SCH (09:28)
[2018-11-21] MEDS: PANTOPRAZOLE 40 MG TABLET PO SCH (09:28)
[2018-11-21] MEDS: CEFTAROLINE 400 MG in SODIUM CHLORIDE 0.9% 100 ML IV SCH (09:28)
[2018-11-21] MEDS ORDERED: hydrOXYzine HCL 25 MG TABLET PO PRN (11:52)
[2018-11-21] MEDS ORDERED: SIMETHICONE CHEW 125 MG TABLET PO PRN (11:52)
[2018-11-21] MEDS: FAMOTIDINE 20 MG TABLET PO SCH ×2 (13:23→21:28)
[2018-11-21] MEDS: SILVER SULFADIAZINE 1% CREAM 25 GM TUBE TOP SCH (13:23)
[2018-11-21] MEDS: LATANOPROST 0.005% OPH SOLN 2.5 ML BOTTLE BOTH EYES SCH (21:27)
[2018-11-21] MEDS: ENOXAPARIN 40 MG/0.4 ML SYRINGE SUBCUT SCH (21:27)
[2018-11-21] MEDS: METOPROLOL TARTRATE 50 MG TABLET PO SCH (21:28)
[2018-11-21] MEDS: INSULIN GLARGINE 100 UNIT/ML SUBCUT SCH (21:28)
[2018-11-21] MEDS: LISINOPRIL 10 MG TABLET PO SCH (21:28)
[2018-11-22] MEDS: CEFTAROLINE 400 MG in SODIUM CHLORIDE 0.9% 100 ML IV SCH ×3 (00:17→21:31)
[2018-11-22 05:11] LABS: Basophils # 0.1 10*3/uL (0.0-0.2); Basophils % 0.8 % (0.0-0.8); Eosinophils # 0.5 10*3/uL (0.0-0.87); Hematocrit 30.2 VOL% (35.7-47.0); Hemoglobin 9.9 GM/DL (12.0-16.0); Immature Granulocytes % 0.4 %; Immature Granulocytes Absolute 0.04 #; Lymphocytes # 2.6 10*3/uL (1.4-4.0); Lymphocytes % 25.6 % (21.3-54.2); Mean Corpuscular HGB Conc 32.8 GM/DL (32-36); Mean Corpuscular Hemoglobin 27 PG (27-34); Mean Corpuscular Volume 83.4 FL (87-102); Mean Platelet Volume 11.9 FL (9.6-12.0); Monocytes # 0.7 10*3/uL (0.11-0.8); Monocytes % 6.5 % (1.7-12.7); Neutrophils # 6.4 10*3/uL (1.4-7.4); Neutrophils % 61.7 % (38.7-73.9); Platelet Count 265 T/CUMM (130-400); Red Blood Count 3.62 MC/CUMM (3.8-5.5); Red Cell Distribution Width 13.9 % (9.3-17.3); White Blood Count 10.3 T/CUMM (4-12)
[2018-11-22 05:22] LABS: Calcium 8.7 MG/DL (8.5-10.1); Osmolality,Calculated 289.8 MOS/KG (273-304); Potassium 3.5 MMOL/L (3.5-5.1)
[2018-11-22] MEDS: INSULIN LISPRO 100 UNIT/ML SUBCUT SCH ×4 (07:52→21:27)
[2018-11-22] MEDS: FAMOTIDINE 20 MG TABLET PO SCH ×2 (09:46→21:28)
[2018-11-22] MEDS: amLODIPine 10 MG TABLET PO SCH (09:46)
[2018-11-22] MEDS: PANTOPRAZOLE 40 MG TABLET PO SCH (09:46)
[2018-11-22] MEDS: METOPROLOL TARTRATE 50 MG TABLET PO SCH ×2 (09:46→21:28)
[2018-11-22] MEDS: SILVER SULFADIAZINE 1% CREAM 25 GM TUBE TOP SCH (09:47)
[2018-11-22] MEDS: FUROSEMIDE 40 MG TABLET PO SCH (09:47)
[2018-11-22] MEDS: LISINOPRIL 10 MG TABLET PO SCH ×2 (09:47→21:28)
[2018-11-22] MEDS: ENOXAPARIN 40 MG/0.4 ML SYRINGE SUBCUT SCH (21:27)
[2018-11-22] MEDS: LATANOPROST 0.005% OPH SOLN 2.5 ML BOTTLE BOTH EYES SCH (21:27)
[2018-11-22] MEDS: INSULIN GLARGINE 100 UNIT/ML SUBCUT SCH (21:28)
[2018-11-23 06:26] LABS: Basophils # 0.1 10*3/uL (0.0-0.2); Basophils % 0.8 % (0.0-0.8); Eosinophils # 0.3 10*3/uL (0.0-0.87); Eosinophils % 3.1 % (0.00-10.9); Hematocrit 30.6 VOL% (35.7-47.0); Immature Granulocytes % 0.3 %; Immature Granulocytes Absolute 0.03 #; Lymphocytes # 2.2 10*3/uL (1.4-4.0); Lymphocytes % 23.8 % (21.3-54.2); Mean Corpuscular HGB Conc 32.7 GM/DL (32-36); Mean Corpuscular Hemoglobin 27 PG (27-34); Mean Corpuscular Volume 83.2 FL (87-102); Monocytes # 0.6 10*3/uL (0.11-0.8); Monocytes % 6.6 % (1.7-12.7); Neutrophils # 6.1 10*3/uL (1.4-7.4); Neutrophils % 65.4 % (38.7-73.9); Platelet Count 292 T/CUMM (130-400); Red Blood Count 3.68 MC/CUMM (3.8-5.5); Red Cell Distribution Width 13.6 % (9.3-17.3); White Blood Count 9.3 T/CUMM (4-12)
[2018-11-23 07:02] LABS: Calcium 8.4 MG/DL (8.5-10.1); Osmolality,Calculated 288.8 MOS/KG (273-304); Potassium 3.4 MMOL/L (3.5-5.1)
[2018-11-23] MEDS: INSULIN LISPRO 100 UNIT/ML SUBCUT SCH ×4 (08:54→21:50)
[2018-11-23] MEDS: SILVER SULFADIAZINE 1% CREAM 25 GM TUBE TOP SCH (09:41)
[2018-11-23] MEDS: CEFTAROLINE 300 MG in SODIUM CHLORIDE 0.9% 100 ML IV SCH ×2 (09:50→22:37)
[2018-11-23] MEDS: PANTOPRAZOLE 40 MG TABLET PO SCH (09:52)
[2018-11-23] MEDS: FUROSEMIDE 40 MG TABLET PO SCH (09:52)
[2018-11-23] MEDS: FAMOTIDINE 20 MG TABLET PO SCH ×2 (09:52→21:52)
[2018-11-23] MEDS: LISINOPRIL 10 MG TABLET PO SCH ×2 (09:52→21:50)
[2018-11-23] MEDS: amLODIPine 10 MG TABLET PO SCH (09:53)
[2018-11-23] MEDS: METOPROLOL TARTRATE 50 MG TABLET PO SCH ×2 (09:53→21:50)
[2018-11-23] MEDS: CEFTAROLINE 400 MG in SODIUM CHLORIDE 0.9% 100 ML IV SCH (09:57)
[2018-11-23] MEDS ORDERED: TUBERCULIN SKIN TEST 0.1 ML SYRINGE INTRADERM ONE (10:00)
[2018-11-23] MEDS ORDERED: INSULIN GLARGINE 100 UNIT/ML SUBCUT SCH ×2 (17:40→17:42)
[2018-11-23] MEDS: ENOXAPARIN 30 MG/0.3 ML SYRINGE SUBCUT SCH (21:49)
[2018-11-23] MEDS: MELATONIN 3 MG TABLET PO PRN (21:50)
[2018-11-23] MEDS: hydrALAZINE 25 MG TABLET PO SCH (21:50)
[2018-11-23] MEDS: LATANOPROST 0.005% OPH SOLN 2.5 ML BOTTLE BOTH EYES SCH (21:52)
[2018-11-24] MEDS: amLODIPine 10 MG TABLET PO SCH (08:57)
[2018-11-24] MEDS: FAMOTIDINE 20 MG TABLET PO SCH ×2 (08:57→21:16)
[2018-11-24] MEDS: PANTOPRAZOLE 40 MG TABLET PO SCH (08:57)
[2018-11-24] MEDS: hydrALAZINE 25 MG TABLET PO SCH ×2 (08:57→21:16)
[2018-11-24] MEDS: INSULIN LISPRO 100 UNIT/ML SUBCUT SCH ×4 (08:57→21:16)
[2018-11-24] MEDS: METOPROLOL TARTRATE 50 MG TABLET PO SCH ×2 (08:57→21:16)
[2018-11-24] MEDS: FUROSEMIDE 40 MG TABLET PO SCH (08:57)
[2018-11-24] MEDS: LISINOPRIL 10 MG TABLET PO SCH ×2 (08:57→21:16)
[2018-11-24] MEDS: SILVER SULFADIAZINE 1% CREAM 25 GM TUBE TOP SCH (08:58)
[2018-11-24] MEDS: CEFTAROLINE 300 MG in SODIUM CHLORIDE 0.9% 100 ML IV SCH ×2 (10:30→22:27)
[2018-11-24] MEDS: MELATONIN 3 MG TABLET PO PRN (21:16)
[2018-11-24] MEDS: ENOXAPARIN 30 MG/0.3 ML SYRINGE SUBCUT SCH (21:16)
[2018-11-24] MEDS: LATANOPROST 0.005% OPH SOLN 2.5 ML BOTTLE BOTH EYES SCH (21:17)
[2018-11-25 05:13] LABS: Basophils # 0.1 10*3/uL (0.0-0.2); Basophils % 0.7 % (0.0-0.8); Eosinophils # 0.5 10*3/uL (0.0-0.87); Eosinophils % 5.5 % (0.00-10.9); Hematocrit 29.9 VOL% (35.7-47.0); Hemoglobin 9.7 GM/DL (12.0-16.0); Immature Granulocytes % 0.1 %; Immature Granulocytes Absolute 0.01 #; Lymphocytes % 34.3 % (21.3-54.2); Mean Corpuscular HGB Conc 32.4 GM/DL (32-36); Mean Corpuscular Hemoglobin 27 PG (27-34); Mean Corpuscular Volume 83.1 FL (87-102); Mean Platelet Volume 11.9 FL (9.6-12.0); Monocytes # 0.6 10*3/uL (0.11-0.8); Monocytes % 6.2 % (1.7-12.7); Neutrophils # 4.7 10*3/uL (1.4-7.4); Neutrophils % 53.2 % (38.7-73.9); Platelet Count 300 T/CUMM (130-400); Red Cell Distribution Width 13.8 % (9.3-17.3); White Blood Count 8.9 T/CUMM (4-12)
[2018-11-25 05:26] LABS: Calcium 8.3 MG/DL (8.5-10.1); Potassium 3.8 MMOL/L (3.5-5.1)
[2018-11-25] MEDS: INSULIN LISPRO 100 UNIT/ML SUBCUT SCH ×4 (07:51→22:13)
[2018-11-25] MEDS ORDERED: SODIUM CHLORIDE 0.45% 500 ML IV ONE (08:07)
[2018-11-25] MEDS: PANTOPRAZOLE 40 MG TABLET PO SCH (08:46)
[2018-11-25] MEDS: FAMOTIDINE 20 MG TABLET PO SCH ×2 (08:46→20:58)
[2018-11-25] MEDS: amLODIPine 10 MG TABLET PO SCH (08:46)
[2018-11-25] MEDS: SILVER SULFADIAZINE 1% CREAM 25 GM TUBE TOP SCH (08:47)
[2018-11-25] MEDS: METOPROLOL TARTRATE 50 MG TABLET PO SCH ×2 (08:47→20:59)
[2018-11-25] MEDS: hydrALAZINE 25 MG TABLET PO SCH ×3 (08:47→20:59)
[2018-11-25] MEDS: CEFTAROLINE 300 MG in SODIUM CHLORIDE 0.9% 100 ML IV SCH (10:32)
[2018-11-25] MEDS: cephALEXin 250 MG CAPSULE PO SCH (20:58)
[2018-11-25] MEDS: LATANOPROST 0.005% OPH SOLN 2.5 ML BOTTLE BOTH EYES SCH (20:59)
[2018-11-25] MEDS: ENOXAPARIN 30 MG/0.3 ML SYRINGE SUBCUT SCH (20:59)
[2018-11-26 04:53] LABS: Basophils # 0.1 10*3/uL (0.0-0.2); Eosinophils # 0.5 10*3/uL (0.0-0.87); Eosinophils % 4.5 % (0.00-10.9); Hematocrit 32.1 VOL% (35.7-47.0); Hemoglobin 10.5 GM/DL (12.0-16.0); Immature Granulocytes % 0.3 %; Immature Granulocytes Absolute 0.03 #; Lymphocytes # 2.8 10*3/uL (1.4-4.0); Lymphocytes % 28.1 % (21.3-54.2); Mean Corpuscular HGB Conc 32.7 GM/DL (32-36); Mean Corpuscular Hemoglobin 27 PG (27-34); Mean Corpuscular Volume 82.9 FL (87-102); Mean Platelet Volume 11.6 FL (9.6-12.0); Monocytes # 0.6 10*3/uL (0.11-0.8); Neutrophils % 60.1 % (38.7-73.9); Platelet Count 329 T/CUMM (130-400); Red Blood Count 3.87 MC/CUMM (3.8-5.5)
[2018-11-26 05:22] LABS: Calcium 8.5 MG/DL (8.5-10.1); Osmolality,Calculated 291.8 MOS/KG (273-304); Potassium 3.6 MMOL/L (3.5-5.1)
[2018-11-26] MEDS: INSULIN LISPRO 100 UNIT/ML SUBCUT SCH ×4 (07:44→20:53)
[2018-11-26] MEDS: hydrALAZINE 25 MG TABLET PO SCH ×4 (08:42→20:52)
[2018-11-26] MEDS: amLODIPine 10 MG TABLET PO SCH (08:42)
[2018-11-26] MEDS: METOPROLOL TARTRATE 50 MG TABLET PO SCH ×2 (08:42→20:52)
[2018-11-26] MEDS: cephALEXin 250 MG CAPSULE PO SCH ×2 (08:42→20:55)
[2018-11-26] MEDS: FAMOTIDINE 20 MG TABLET PO SCH ×2 (08:42→20:52)
[2018-11-26] MEDS: PANTOPRAZOLE 40 MG TABLET PO SCH (08:42)
[2018-11-26] MEDS: SILVER SULFADIAZINE 1% CREAM 25 GM TUBE TOP SCH (08:43)
[2018-11-26] MEDS: LATANOPROST 0.005% OPH SOLN 2.5 ML BOTTLE BOTH EYES SCH (20:53)
[2018-11-26] MEDS: ENOXAPARIN 30 MG/0.3 ML SYRINGE SUBCUT SCH (20:53)
[2018-11-27 05:50] LABS: Basophils # 0.1 10*3/uL (0.0-0.2); Basophils % 0.9 % (0.0-0.8); Eosinophils # 0.4 10*3/uL (0.0-0.87); Eosinophils % 4.6 % (0.00-10.9); Hematocrit 32.4 VOL% (35.7-47.0); Hemoglobin 10.3 GM/DL (12.0-16.0); Immature Granulocytes % 0.3 %; Immature Granulocytes Absolute 0.03 #; Lymphocytes % 31.2 % (21.3-54.2); Mean Corpuscular HGB Conc 31.8 GM/DL (32-36); Mean Corpuscular Hemoglobin 27 PG (27-34); Mean Corpuscular Volume 84.2 FL (87-102); Monocytes # 0.6 10*3/uL (0.11-0.8); Monocytes % 6.2 % (1.7-12.7); Neutrophils # 5.5 10*3/uL (1.4-7.4); Neutrophils % 56.8 % (38.7-73.9); Platelet Count 323 T/CUMM (130-400); Red Blood Count 3.85 MC/CUMM (3.8-5.5); Red Cell Distribution Width 13.8 % (9.3-17.3); White Blood Count 9.6 T/CUMM (4-12)
[2018-11-27 06:10] LABS: Calcium 8.6 MG/DL (8.5-10.1); Potassium 3.8 MMOL/L (3.5-5.1)
[2018-11-27] MEDS: INSULIN LISPRO 100 UNIT/ML SUBCUT SCH ×4 (07:03→21:27)
[2018-11-27] MEDS: SILVER SULFADIAZINE 1% CREAM 25 GM TUBE TOP SCH (08:50)
[2018-11-27] MEDS: hydrALAZINE 25 MG TABLET PO SCH ×4 (08:50→21:25)
[2018-11-27] MEDS: FAMOTIDINE 20 MG TABLET PO SCH ×2 (08:51→21:26)
[2018-11-27] MEDS: METOPROLOL TARTRATE 50 MG TABLET PO SCH ×2 (08:51→21:26)
[2018-11-27] MEDS: cephALEXin 250 MG CAPSULE PO SCH ×2 (08:51→21:26)
[2018-11-27] MEDS: PANTOPRAZOLE 40 MG TABLET PO SCH (08:51)
[2018-11-27] MEDS: amLODIPine 10 MG TABLET PO SCH (08:51)
[2018-11-27] MEDS: LATANOPROST 0.005% OPH SOLN 2.5 ML BOTTLE BOTH EYES SCH (21:27)
[2018-11-27] MEDS: ENOXAPARIN 30 MG/0.3 ML SYRINGE SUBCUT SCH (21:27)
[2018-11-28] MEDS: INSULIN LISPRO 100 UNIT/ML SUBCUT SCH ×4 (07:28→20:33)
[2018-11-28] MEDS: hydrALAZINE 25 MG TABLET PO SCH ×4 (08:46→20:33)
[2018-11-28] MEDS: PANTOPRAZOLE 40 MG TABLET PO SCH (08:47)
[2018-11-28] MEDS: amLODIPine 10 MG TABLET PO SCH (08:47)
[2018-11-28] MEDS: METOPROLOL TARTRATE 50 MG TABLET PO SCH ×2 (08:47→20:34)
[2018-11-28] MEDS: FAMOTIDINE 20 MG TABLET PO SCH (08:47)
[2018-11-28] MEDS: cephALEXin 250 MG CAPSULE PO SCH ×2 (08:47→20:36)
[2018-11-28] MEDS: SILVER SULFADIAZINE 1% CREAM 25 GM TUBE TOP SCH (08:47)
[2018-11-28] MEDS: ISOSORBIDE DINITRATE 20 MG TABLET PO SCH ×2 (10:18→20:33)
[2018-11-28 10:26] LABS: Calcium 8.6 MG/DL (8.5-10.1); Potassium 3.7 MMOL/L (3.5-5.1)
[2018-11-28] MEDS: ENOXAPARIN 30 MG/0.3 ML SYRINGE SUBCUT SCH (20:37)
[2018-11-28] MEDS: LATANOPROST 0.005% OPH SOLN 2.5 ML BOTTLE BOTH EYES SCH (20:37)
[2018-11-29] MEDS: FAMOTIDINE 20 MG TABLET PO SCH ×3 (00:25→20:50)
[2018-11-29 05:40] LABS: Calcium 8.5 MG/DL (8.5-10.1); Potassium 3.9 MMOL/L (3.5-5.1)
[2018-11-29] MEDS: hydrALAZINE 25 MG TABLET PO SCH ×4 (08:59→20:50)
[2018-11-29] MEDS: amLODIPine 10 MG TABLET PO SCH (09:00)
[2018-11-29] MEDS: ISOSORBIDE DINITRATE 20 MG TABLET PO SCH ×2 (09:00→20:50)
[2018-11-29] MEDS: cephALEXin 250 MG CAPSULE PO SCH ×2 (09:00→20:52)
[2018-11-29] MEDS: PANTOPRAZOLE 40 MG TABLET PO SCH (09:00)
[2018-11-29] MEDS: SILVER SULFADIAZINE 1% CREAM 25 GM TUBE TOP SCH (09:00)
[2018-11-29] MEDS: METOPROLOL TARTRATE 50 MG TABLET PO SCH ×2 (09:00→20:50)
[2018-11-29] MEDS: INSULIN LISPRO 100 UNIT/ML SUBCUT SCH ×4 (09:01→20:53)
[2018-11-29] MEDS: DOCUSATE SODIUM 100 MG CAPSULE PO PRN (15:15)
[2018-11-29] MEDS: ENOXAPARIN 30 MG/0.3 ML SYRINGE SUBCUT SCH (20:50)
[2018-11-29] MEDS: LATANOPROST 0.005% OPH SOLN 2.5 ML BOTTLE BOTH EYES SCH (21:53)
[2018-11-30] MEDS: DOCUSATE SODIUM 100 MG CAPSULE PO PRN (02:14)
[2018-11-30 04:20] LABS: Basophils # 0.1 10*3/uL (0.0-0.2); Basophils % 0.8 % (0.0-0.8); Eosinophils # 0.5 10*3/uL (0.0-0.87); Eosinophils % 4.7 % (0.00-10.9); Hematocrit 30.2 VOL% (35.7-47.0); Hemoglobin 9.8 GM/DL (12.0-16.0); Immature Granulocytes % 0.4 %; Immature Granulocytes Absolute 0.04 #; Lymphocytes % 30.5 % (21.3-54.2); Mean Corpuscular HGB Conc 32.5 GM/DL (32-36); Mean Corpuscular Hemoglobin 27 PG (27-34); Mean Corpuscular Volume 84.1 FL (87-102); Mean Platelet Volume 11.5 FL (9.6-12.0); Monocytes # 0.6 10*3/uL (0.11-0.8); Neutrophils # 5.7 10*3/uL (1.4-7.4); Neutrophils % 57.6 % (38.7-73.9); Platelet Count 300 T/CUMM (130-400); Red Blood Count 3.59 MC/CUMM (3.8-5.5); Red Cell Distribution Width 14.2 % (9.3-17.3); White Blood Count 9.8 T/CUMM (4-12)
[2018-11-30 04:47] LABS: Alanine Aminotransferase < 9 U/L (13-56); Albumin 2.1 G/DL (3.4-5.0); Alkaline Phosphatase 60 U/L (45-117); Aspartate Amino Transferase 7 U/L (0-37); Blood Urea Nitrogen 30 MG/DL (7-18); Calcium 8.5 MG/DL (8.5-10.1); Glucose 169 MG/DL (74-106); Osmolality,Calculated 288.4 MOS/KG (273-304); Sodium 140 MMOL/L (136-145); Total Protein 5.7 G/DL (6.4-8.3)
[2018-11-30] MEDS: INSULIN LISPRO 100 UNIT/ML SUBCUT SCH ×4 (08:15→20:20)
[2018-11-30] MEDS: ISOSORBIDE DINITRATE 20 MG TABLET PO SCH ×2 (08:16→20:22)
[2018-11-30] MEDS: METOPROLOL TARTRATE 50 MG TABLET PO SCH ×2 (08:16→20:22)
[2018-11-30] MEDS: SILVER SULFADIAZINE 1% CREAM 25 GM TUBE TOP SCH (08:16)
[2018-11-30] MEDS: FAMOTIDINE 20 MG TABLET PO SCH ×2 (08:16→20:22)
[2018-11-30] MEDS: PANTOPRAZOLE 40 MG TABLET PO SCH (08:16)
[2018-11-30] MEDS: amLODIPine 10 MG TABLET PO SCH (08:16)
[2018-11-30] MEDS: hydrALAZINE 25 MG TABLET PO SCH ×4 (08:16→20:21)
[2018-11-30] MEDS: cephALEXin 250 MG CAPSULE PO SCH ×2 (08:38→20:21)
[2018-11-30] MEDS: ENOXAPARIN 30 MG/0.3 ML SYRINGE SUBCUT SCH (20:21)
[2018-11-30] MEDS: LATANOPROST 0.005% OPH SOLN 2.5 ML BOTTLE BOTH EYES SCH (20:22)
[2018-12-01] MEDS: FAMOTIDINE 20 MG TABLET PO SCH ×2 (10:16→20:45)
[2018-12-01] MEDS: INSULIN LISPRO 100 UNIT/ML SUBCUT SCH ×4 (10:16→20:53)
[2018-12-01] MEDS: hydrALAZINE 25 MG TABLET PO SCH ×4 (10:16→20:46)
[2018-12-01] MEDS: PANTOPRAZOLE 40 MG TABLET PO SCH (10:17)
[2018-12-01] MEDS: METOPROLOL TARTRATE 50 MG TABLET PO SCH ×2 (10:17→20:45)
[2018-12-01] MEDS: ISOSORBIDE DINITRATE 20 MG TABLET PO SCH ×2 (10:17→20:45)
[2018-12-01] MEDS: amLODIPine 10 MG TABLET PO SCH (10:17)
[2018-12-01] MEDS: SILVER SULFADIAZINE 1% CREAM 25 GM TUBE TOP SCH (10:19)
[2018-12-01] MEDS: cephALEXin 250 MG CAPSULE PO SCH ×2 (10:22→20:45)
[2018-12-01] MEDS: LATANOPROST 0.005% OPH SOLN 2.5 ML BOTTLE BOTH EYES SCH (20:45)
[2018-12-01] MEDS: ENOXAPARIN 30 MG/0.3 ML SYRINGE SUBCUT SCH (20:46)
[2018-12-02] MEDS: hydrALAZINE 25 MG TABLET PO SCH ×3 (10:07→18:53)
[2018-12-02] MEDS: ISOSORBIDE DINITRATE 20 MG TABLET PO SCH (10:08)
[2018-12-02] MEDS: FAMOTIDINE 20 MG TABLET PO SCH (10:08)
[2018-12-02] MEDS: amLODIPine 10 MG TABLET PO SCH (10:08)
[2018-12-02] MEDS: PANTOPRAZOLE 40 MG TABLET PO SCH (10:08)
[2018-12-02] MEDS: METOPROLOL TARTRATE 50 MG TABLET PO SCH (10:08)
[2018-12-02] MEDS: SILVER SULFADIAZINE 1% CREAM 25 GM TUBE TOP SCH (10:09)
[2018-12-02] MEDS: cephALEXin 250 MG CAPSULE PO SCH (10:12)
[2018-12-02] MEDS: INSULIN LISPRO 100 UNIT/ML SUBCUT SCH ×3 (10:37→15:45)
[2018-12-02 16:44] VITALS: BP 140/58
== END 2018-12-02 19:22 | DRG 603 ==
LOC: EDBD → EDUNIT# → N.EDINP 16:36 → N.ED 16:36 → SUATTDRO 18:28 → N.3E 19:57
PROVIDERS: ADMIT Hospitalist; ATTEND Internal Medicine

== ENCOUNTER 2020-02-08 13:28 | Inpatient (IN) ==
[2020-02-08] MEDS ORDERED: DEXTROSE 10% 250 ML BAG IV PRN (16:42)
[2020-02-08] MEDS ORDERED: GLUCAGON 1 MG VIAL IM PRN (16:42)
[2020-02-08] MEDS ORDERED: SODIUM CHLORIDE 0.9% 1,000 ML IV SCH (17:00)
[2020-02-08 18:02] LABS: Basophils # 0.1 10*3/uL (0.0-0.2); Basophils % 0.6 % (0.0-0.8); Eosinophils # 0.1 10*3/uL (0.0-0.87); Eosinophils % 0.6 % (0.00-10.9); Hematocrit 34.9 VOL% (35.7-47.0); Hemoglobin 11.3 GM/DL (12.0-16.0); Immature Granulocytes % 0.7 %; Immature Granulocytes Absolute 0.07 #; Lymphocytes # 2.4 10*3/uL (1.4-4.0); Lymphocytes % 22.7 % (21.3-54.2); Mean Corpuscular HGB Conc 32.4 GM/DL (32-36); Mean Platelet Volume 11.7 FL (9.6-12.0); Monocytes % 7.1 % (1.7-12.7); NRBC # 0.07 10*3/uL; Neutrophils % 68.3 % (38.7-73.9); Platelet Count 198 T/CUMM (130-400); Red Blood Count 3.92 MC/CUMM (3.8-5.5); Red Cell Distribution Width 14.8 % (9.3-17.3); White Blood Count 10.5 T/CUMM (4-12)
[2020-02-08] MEDS ORDERED: CALCIUM CARBONATE CHEW 500 MG TABLET PO PRN (18:04)
[2020-02-08] MEDS ORDERED: LORATADINE 10 MG TABLET PO PRN (18:04)
[2020-02-08] MEDS ORDERED: MELATONIN 3 MG TABLET PO PRN (18:04)
[2020-02-08 18:17] LABS: Alanine Aminotransferase 32 U/L (13-56); Albumin 2.1 G/DL (3.4-5.0); Alkaline Phosphatase 75 U/L (45-117); Aspartate Amino Transferase 23 U/L (0-37); Bilirubin,Total < 0.39 MG/DL (0.2-1.0); Blood Urea Nitrogen 77 MG/DL (7-18); Calcium 8.5 MG/DL (8.5-10.1); Estimated Glom Filtration Rate 8 ML/MIN; Glucose 115 MG/DL (74-106)
[2020-02-08] MEDS ORDERED: MAGNESIUM SULF RIDER 4 GM in PREMIX 1 EACH IV PRN (18:54)
[2020-02-08] MEDS ORDERED: MAGNESIUM SULF RIDER 2 GM in PREMIX 1 EACH IV PRN (18:54)
[2020-02-08 19:17] LABS: Amorphous Crystals,Urine Occasional /HPF (Few); Apearance,Urine CLOUDY (Clear); Bacteria,Urine Occasional /HPF (Few); Bilirubin,Urine Negative (Negative); Blood, Urine Small mg/dL (Negative); Glucose,Urine (UA) 50 mg/dL (Negative); Ketones,Urine Negative (Negative); Nitrite,Urine Negative (Negative); Protein,Urine >=500 MG/DL; RBC,Urine 3 /HPF (0-4); Squamous Epithelial Cell,Urine Occasional /HPF (0-10); Urine Color Yellow (Yellow); Urine Specific Gravity 1.014 (1.001-1.035); Urine Urobilinogen < 2.0 EU/DL (0.2-1.0)
[2020-02-08] MEDS ORDERED: ROSUVASTATIN 20 MG TABLET PO SCH (21:00)
[2020-02-08] MEDS ORDERED: LOSARTAN 50 MG TABLET PO SCH (21:00)
[2020-02-08] MEDS: INSULIN LISPRO 100 UNIT/ML SUBCUT SCH (21:01)
[2020-02-08] MEDS: METOPROLOL TARTRATE 100 MG TABLET PO SCH (21:01)
[2020-02-08] MEDS: DOCUSATE SODIUM 100 MG CAPSULE PO SCH (21:01)
[2020-02-08] MEDS: LATANOPROST 0.005% OPH SOLN 2.5 ML BOTTLE BOTH EYES SCH (21:01)
[2020-02-09] MEDS: SODIUM CHLOR 0.45% KCL 20 MEQ 20 MEQ/1,000 ML BAG IV SCH ×4 (03:46→22:37)
[2020-02-09 05:47] LABS: Basophils % 0.4 % (0.0-0.8); Eosinophils % 0.1 % (0.00-10.9); Hematocrit 33.1 VOL% (35.7-47.0); Hemoglobin 10.7 GM/DL (12.0-16.0); Immature Granulocytes % 0.6 %; Immature Granulocytes Absolute 0.05 #; Lymphocytes # 1.9 10*3/uL (1.4-4.0); Lymphocytes % 22.7 % (21.3-54.2); Mean Corpuscular HGB Conc 32.3 GM/DL (32-36); Mean Corpuscular Volume 88.5 FL (87-102); Mean Platelet Volume 11.7 FL (9.6-12.0); Monocytes % 7.3 % (1.7-12.7); Neutrophils % 68.9 % (38.7-73.9); Platelet Count 220 T/CUMM (130-400); Red Blood Count 3.74 MC/CUMM (3.8-5.5); Red Cell Distribution Width 14.7 % (9.3-17.3); White Blood Count 8.5 T/CUMM (4-12)
[2020-02-09 06:13] LABS: Albumin 2.1 G/DL (3.4-5.0); Bilirubin,Total 0.4 MG/DL (0.2-1.0); Calcium 8.7 MG/DL (8.5-10.1); Osmolality,Calculated 309.8 MOS/KG (273-304); Risk Ratio 4.45; Thyroid Stimulating Hormone 2.2 uIU/ml (0.358-3.74); Total Protein 5.6 G/DL (6.4-8.3)
[2020-02-09] MEDS: INSULIN LISPRO 100 UNIT/ML SUBCUT SCH ×4 (08:21→22:33)
[2020-02-09] MEDS: FERROUS SULFATE 325 MG TABLET PO SCH (08:41)
[2020-02-09] MEDS: DOCUSATE SODIUM 100 MG CAPSULE PO SCH ×2 (08:41→22:33)
[2020-02-09] MEDS: METOPROLOL TARTRATE 100 MG TABLET PO SCH ×2 (08:41→22:33)
[2020-02-09] MEDS ORDERED: ERGOCALCIFEROL 50,000 UNIT CAPSULE PO SCH (09:00)
[2020-02-09] MEDS: hydrALAZINE 20 MG/1 ML VIAL IV PRN (11:50)
[2020-02-09] MEDS: LATANOPROST 0.005% OPH SOLN 2.5 ML BOTTLE BOTH EYES SCH (22:33)
[2020-02-10] MEDS: hydrALAZINE 20 MG/1 ML VIAL IV PRN (04:28)
[2020-02-10 06:56] LABS: Alanine Aminotransferase 27 U/L (13-56); Albumin 1.8 G/DL (3.4-5.0); Alkaline Phosphatase 69 U/L (45-117); Aspartate Amino Transferase 25 U/L (0-37); Bilirubin,Total < 0.39 MG/DL (0.2-1.0); Blood Urea Nitrogen 64 MG/DL (7-18); Calcium 8.3 MG/DL (8.5-10.1); Estimated Glom Filtration Rate 9 ML/MIN; Glucose 93 MG/DL (74-106); Osmolality,Calculated 300.1 MOS/KG (273-304); Total Protein 5.3 G/DL (6.4-8.3)
[2020-02-10 07:01] LABS: Basophils % 0.2 % (0.0-0.8); Eosinophils % 0.5 % (0.00-10.9); Hematocrit 33.7 VOL% (35.7-47.0); Hemoglobin 11.1 GM/DL (12.0-16.0); Immature Granulocytes % 0.5 %; Immature Granulocytes Absolute 0.04 #; Lymphocytes # 2.3 10*3/uL (1.4-4.0); Lymphocytes % 27.1 % (21.3-54.2); Mean Corpuscular HGB Conc 32.9 GM/DL (32-36); Mean Corpuscular Volume 86.4 FL (87-102); Mean Platelet Volume 11.7 FL (9.6-12.0); Monocytes % 7.6 % (1.7-12.7); Neutrophils % 64.1 % (38.7-73.9); Platelet Count 188 T/CUMM (130-400); Red Cell Distribution Width 14.6 % (9.3-17.3); White Blood Count 8.4 T/CUMM (4-12)
[2020-02-10] MEDS: INSULIN LISPRO 100 UNIT/ML SUBCUT SCH ×2 (07:45→12:48)
[2020-02-10] MEDS: DOCUSATE SODIUM 100 MG CAPSULE PO SCH (08:40)
[2020-02-10] MEDS: FERROUS SULFATE 325 MG TABLET PO SCH (08:40)
[2020-02-10] MEDS: METOPROLOL TARTRATE 100 MG TABLET PO SCH (08:40)
[2020-02-10 12:17] VITALS: BP 133/66
[2020-02-10] MEDS: SODIUM CHLOR 0.45% KCL 20 MEQ 20 MEQ/1,000 ML BAG IV SCH (12:48)
[2020-02-10] MEDS ORDERED: hydrALAZINE 25 MG TABLET PO SCH (15:00)
== END 2020-02-10 12:21 | DRG 683 ==
LOC: N.TELEN 16:14 → SUATTDRO 16:14
PROVIDERS: ADMIT Internal Medicine; ATTEND Internal Medicine

== ENCOUNTER 2020-03-02 02:03 | Inpatient (IN) ==
[2020-03-02] MEDS ORDERED: SODIUM CHLORIDE 0.9% 1,000 ML IV STA (02:43)
[2020-03-02 03:17] LABS: Basophils # 0.1 10*3/uL (0.0-0.2); Basophils % 0.4 % (0.0-0.8); Eosinophils # 0.4 10*3/uL (0.0-0.87); Eosinophils % 1.9 % (0.00-10.9); Hematocrit 32.6 VOL% (35.7-47.0); Hemoglobin 9.7 GM/DL (12.0-16.0); Immature Granulocytes % 3.4 %; Lymphocytes # 4.8 10*3/uL (1.4-4.0); Lymphocytes % 20.8 % (21.3-54.2); Mean Corpuscular HGB Conc 29.8 GM/DL (32-36); Mean Corpuscular Volume 94.2 FL (87-102); Mean Platelet Volume 11.1 FL (9.6-12.0); Monocytes % 12.7 % (1.7-12.7); NRBC # 0.04 10*3/uL; Neutrophils % 60.8 % (38.7-73.9); Platelet Count 436 T/CUMM (130-400); Red Blood Count 3.46 MC/CUMM (3.8-5.5); Red Cell Distribution Width 16.2 % (9.3-17.3); White Blood Count 23.3 T/CUMM (4-12)
[2020-03-02 03:32] LABS: INR 1.3; PT Patient Result 13.4 SECS (9.8-11.9)
[2020-03-02 04:04] LABS: Anisocytosis 1+; Eosinophils 2 % (0-10); Lymphocytes 23 % (20-55); Platelet Estimate Adequate; Segmented Neutrophils 68 % (50-85); Total Cells Counted 100
[2020-03-02 04:07] LABS: Apearance,Urine CLOUDY (Clear); Bilirubin,Urine Negative (Negative); Blood, Urine Small mg/dL (Negative); Glucose,Urine (UA) 50 mg/dL (Negative); Ketones,Urine Negative (Negative); Nitrite,Urine Negative (Negative); Protein,Urine >=500 MG/DL; Squamous Epithelial Cell,Urine Occasional /HPF (0-10); Urine Color Amber (Yellow); Urine Specific Gravity 1.015 (1.001-1.035); Urine Urobilinogen < 2.0 EU/DL (0.2-1.0)
[2020-03-02 05:05] LABS: Alanine Aminotransferase 17 U/L (13-56); Albumin 1.5 G/DL (3.4-5.0); Alkaline Phosphatase 73 U/L (45-117); Aspartate Amino Transferase 27 U/L (0-37); Blood Urea Nitrogen 162 MG/DL (7-18); Calcium 9.8 MG/DL (8.5-10.1); Estimated Glom Filtration Rate 3 ML/MIN; Glucose 142 MG/DL (74-106); Total Protein 6.5 G/DL (6.4-8.3); Troponin I 0.028 NG/ML (0.00-0.045)
[2020-03-02] MEDS ORDERED: cefTRIAXone 1,000 MG in SODIUM CHLORIDE 0.9% 100 ML IV STA (05:14)
[2020-03-02] MEDS ORDERED: AZITHROMYCIN INJ 500 MG in SODIUM CHLORIDE 0.9% 250 ML IV STA (05:14)
[2020-03-02] MEDS ORDERED: AZITHROMYCIN 500 MG VIAL IV ONE (05:15)
[2020-03-02] MEDS ORDERED: cefTRIAXone 1,000 MG VIAL ONE (05:15)
[2020-03-02] MEDS ORDERED: ACETAMINOPHEN 325 MG TABLET PO PRN (05:18)
[2020-03-02] MEDS ORDERED: GLUCAGON 1 MG VIAL IM PRN (05:18)
[2020-03-02] MEDS ORDERED: ONDANSETRON 4 MG/2 ML VIAL IV PRN (05:18)
[2020-03-02] MEDS ORDERED: DEXTROSE 50% 25 GM/50 ML VIAL IV PRN (05:18)
[2020-03-02] MEDS ORDERED: SODIUM CHLORIDE 0.9% 1,000 ML IV SCH (05:30)
[2020-03-02] MEDS: cefTRIAXone 1,000 MG in SYRINGE 1 EACH IV SCH (08:58)
[2020-03-02] MEDS ORDERED: AZITHROMYCIN 250 MG TABLET PO SCH (09:00)
[2020-03-02] MEDS: INSULIN REGULAR 100 UNIT/ML SUBCUT SCH ×3 (10:20→17:37)
[2020-03-02 13:14] LABS: Alanine Aminotransferase 16 U/L (13-56); Albumin 1.4 G/DL (3.4-5.0); Alkaline Phosphatase 73 U/L (45-117); Aspartate Amino Transferase 17 U/L (0-37); Bilirubin,Total < 0.39 MG/DL (0.2-1.0); Blood Urea Nitrogen 152 MG/DL (7-18); Calcium 9.2 MG/DL (8.5-10.1); Estimated Glom Filtration Rate 3 ML/MIN; Glucose 141 MG/DL (74-106); Osmolality,Calculated 365.7 MOS/KG (273-304); Total Protein 5.9 G/DL (6.4-8.3)
[2020-03-02] MEDS: SODIUM CHLORIDE 0.45% 1,000 ML IV SCH (18:38)
[2020-03-03] MEDS: INSULIN REGULAR 100 UNIT/ML SUBCUT SCH ×4 (01:37→18:14)
[2020-03-03] MEDS: SODIUM CHLORIDE 0.45% 1,000 ML IV SCH ×3 (02:30→19:04)
[2020-03-03] MEDS: cefTRIAXone 1,000 MG in SYRINGE 1 EACH IV SCH (06:30)
[2020-03-03] MEDS: AZITHROMYCIN 250 MG TABLET PO SCH ×2 (09:12→09:38)
[2020-03-03] MEDS ORDERED: LORazepam 2 MG/1 ML VIAL ONE (09:47)
[2020-03-03] MEDS: LORazepam 2 MG/1 ML VIAL IV ONE ×2 (09:51→18:01)
[2020-03-03] MEDS ORDERED: LORazepam 2 MG/1 ML VIAL IV ONE (10:00)
[2020-03-03 12:31] LABS: Basophils # 0.1 10*3/uL (0.0-0.2); Basophils % 0.5 % (0.0-0.8); Eosinophils # 0.4 10*3/uL (0.0-0.87); Hematocrit 28.7 VOL% (35.7-47.0); Hemoglobin 8.6 GM/DL (12.0-16.0); Immature Granulocytes Absolute 0.66 #; Lymphocytes # 4.2 10*3/uL (1.4-4.0); Lymphocytes % 19.3 % (21.3-54.2); Monocytes % 15.3 % (1.7-12.7); NRBC # 0.06 10*3/uL; Neutrophils % 59.9 % (38.7-73.9); Platelet Count 379 T/CUMM (130-400); Red Blood Count 3.02 MC/CUMM (3.8-5.5); Red Cell Distribution Width 16.3 % (9.3-17.3)
[2020-03-03 12:45] LABS: Alanine Aminotransferase 12 U/L (13-56); Albumin 1.5 G/DL (3.4-5.0); Alkaline Phosphatase 75 U/L (45-117); Aspartate Amino Transferase 18 U/L (0-37); Bilirubin,Total < 0.39 MG/DL (0.2-1.0); Blood Urea Nitrogen 137 MG/DL (7-18); Calcium 9.4 MG/DL (8.5-10.1); Estimated Glom Filtration Rate 4 ML/MIN; Glucose 105 MG/DL (74-106); Total Protein 6.1 G/DL (6.4-8.3)
[2020-03-03 13:33] LABS: Hepatitis B Core IgM Quant 0.11 Index; Hepatitis B Surface Ag Result Negative (Negative); Hepatitis C Virus Ab Quant < 0.02 Index; Hepatitis C Virus Ab Result Negative (Negative)
[2020-03-03] MEDS ORDERED: MELATONIN 3 MG TABLET PO PRN (13:50)
[2020-03-03] MEDS: AZITHROMYCIN INJ 250 MG in SODIUM CHLORIDE 0.9% 150 ML IV SCH (14:00)
[2020-03-03] MEDS ORDERED: AZITHROMYCIN INJ 250 MG in SODIUM CHLORIDE 0.9% 250 ML IV SCH (14:00)
[2020-03-03 14:57] LABS: Band Neutrophils 1 % (0-10); Burr Cells Slight; Eosinophils 2 % (0-10); Lymphocytes 16 % (20-55); Metamyelocytes 2 %; Platelet Estimate Normal; Poikilocytosis Slight; Segmented Neutrophils 75 % (50-85); Total Cells Counted 100
[2020-03-03] MEDS ORDERED: ALBUMIN 25% 25 GM in PREMIX 1 EACH IV ONE (16:38)
[2020-03-03] MEDS: hydrALAZINE 25 MG TABLET PO SCH ×2 (17:58→20:52)
[2020-03-03] MEDS: LATANOPROST 0.005% OPH SOLN 2.5 ML BOTTLE BOTH EYES SCH (20:52)
[2020-03-03] MEDS: METOPROLOL TARTRATE 50 MG TABLET PO SCH (20:52)
[2020-03-03] MEDS ORDERED: METOPROLOL TARTRATE 100 MG TABLET PO SCH (21:00)
[2020-03-04] MEDS ORDERED: DEXTROSE 10% 250 ML IV ONE (00:12)
[2020-03-04] MEDS ORDERED: DEXTROSE 10% 250 ML BAG IV PRN (01:00)
[2020-03-04] MEDS: INSULIN REGULAR 100 UNIT/ML SUBCUT SCH ×5 (01:08→23:31)
[2020-03-04] MEDS: SODIUM CHLORIDE 0.45% 1,000 ML IV SCH ×2 (03:18→12:00)
[2020-03-04 03:23] LABS: Calcium 8.8 MG/DL (8.5-10.1); Osmolality,Calculated 318.4 MOS/KG (273-304)
[2020-03-04 04:24] LABS: Basophils # 0.1 10*3/uL (0.0-0.2); Basophils % 0.3 % (0.0-0.8); Eosinophils # 0.3 10*3/uL (0.0-0.87); Eosinophils % 1.2 % (0.00-10.9); Hematocrit 21.7 VOL% (35.7-47.0); Immature Granulocytes % 3.6 %; Immature Granulocytes Absolute 0.77 #; Lymphocytes # 4.2 10*3/uL (1.4-4.0); Lymphocytes % 19.3 % (21.3-54.2); Mean Corpuscular HGB Conc 31.3 GM/DL (32-36); Mean Corpuscular Volume 91.9 FL (87-102); Mean Platelet Volume 11.5 FL (9.6-12.0); Monocytes % 11.2 % (1.7-12.7); NRBC # 0.09 10*3/uL; Neutrophils % 64.4 % (38.7-73.9); Platelet Count 247 T/CUMM (130-400); Red Blood Count 2.36 MC/CUMM (3.8-5.5); Red Cell Distribution Width 15.9 % (9.3-17.3); White Blood Count 21.7 T/CUMM (4-12)
[2020-03-04 04:29] LABS: Hemoglobin 6.8 GM/DL (12.0-16.0)
[2020-03-04 04:57] LABS: Band Neutrophils 6 % (0-10); Lymphocytes 14 % (20-55); Metamyelocytes 1 %; Segmented Neutrophils 67 % (50-85); Total Cells Counted 100
[2020-03-04 04:58] LABS: Anisocytosis 2+; Macrocytosis 2+; Platelet Estimate Normal
[2020-03-04] MEDS: cefTRIAXone 1,000 MG in SYRINGE 1 EACH IV SCH (06:12)
[2020-03-04] MEDS: METOPROLOL TARTRATE 50 MG TABLET PO SCH ×2 (08:06→20:59)
[2020-03-04] MEDS: hydrALAZINE 25 MG TABLET PO SCH ×3 (08:06→20:59)
[2020-03-04] MEDS: AZITHROMYCIN INJ 250 MG in SODIUM CHLORIDE 0.9% 150 ML IV SCH (14:28)
[2020-03-04] MEDS: LATANOPROST 0.005% OPH SOLN 2.5 ML BOTTLE BOTH EYES SCH (20:59)
[2020-03-05] MEDS: cefTRIAXone 1,000 MG in SYRINGE 1 EACH IV SCH (06:05)
[2020-03-05] MEDS: INSULIN REGULAR 100 UNIT/ML SUBCUT SCH ×3 (06:06→17:46)
[2020-03-05] MEDS: hydrALAZINE 25 MG TABLET PO SCH ×3 (08:30→20:11)
[2020-03-05] MEDS: METOPROLOL TARTRATE 50 MG TABLET PO SCH ×2 (08:31→20:12)
[2020-03-05] MEDS: SODIUM CHLORIDE 0.45% 1,000 ML IV SCH (08:33)
[2020-03-05 08:45] LABS: Basophils # 0.1 10*3/uL (0.0-0.2); Basophils % 0.3 % (0.0-0.8); Eosinophils # 0.2 10*3/uL (0.0-0.87); Hematocrit 21.1 VOL% (35.7-47.0); Hemoglobin 6.5 GM/DL (12.0-16.0); Immature Granulocytes % 5.5 %; Immature Granulocytes Absolute 1.12 #; Lymphocytes # 4.3 10*3/uL (1.4-4.0); Lymphocytes % 20.9 % (21.3-54.2); Mean Corpuscular HGB Conc 30.8 GM/DL (32-36); Mean Corpuscular Volume 92.1 FL (87-102); Mean Platelet Volume 11.1 FL (9.6-12.0); Monocytes % 12.3 % (1.7-12.7); NRBC # 0.18 10*3/uL; Platelet Count 211 T/CUMM (130-400); Red Blood Count 2.29 MC/CUMM (3.8-5.5); Red Cell Distribution Width 15.6 % (9.3-17.3); White Blood Count 20.4 T/CUMM (4-12)
[2020-03-05 09:13] LABS: Calcium 8.6 MG/DL (8.5-10.1); Osmolality,Calculated 300.1 MOS/KG (273-304)
[2020-03-05 09:15] LABS: Band Neutrophils 3 % (0-10); Hypochromasia Slight; Lymphocytes 15 % (20-55); Nucleated Red Blood Cells 1 (0-5); Platelet Estimate Adequate; Segmented Neutrophils 76 % (50-85); Total Cells Counted 100
[2020-03-05 09:16] LABS: Macrocytosis Slight
[2020-03-05] MEDS ORDERED: SODIUM CHLORIDE 0.9% 1,000 ML IV PRN (11:31)
[2020-03-05] MEDS: AZITHROMYCIN INJ 250 MG in SODIUM CHLORIDE 0.9% 150 ML IV SCH (13:50)
[2020-03-05] MEDS: LATANOPROST 0.005% OPH SOLN 2.5 ML BOTTLE BOTH EYES SCH (20:12)
[2020-03-06] MEDS: INSULIN REGULAR 100 UNIT/ML SUBCUT SCH ×5 (00:03→23:31)
[2020-03-06] MEDS: cefTRIAXone 1,000 MG in SYRINGE 1 EACH IV SCH (04:36)
[2020-03-06] MEDS: SODIUM CHLORIDE 0.45% 1,000 ML IV SCH (04:37)
[2020-03-06 05:19] LABS: Basophils # 0.1 10*3/uL (0.0-0.2); Basophils % 0.4 % (0.0-0.8); Eosinophils # 0.3 10*3/uL (0.0-0.87); Eosinophils % 1.2 % (0.00-10.9); Hemoglobin 6.8 GM/DL (12.0-16.0); Immature Granulocytes % 5.2 %; Immature Granulocytes Absolute 1.09 #; Lymphocytes # 3.9 10*3/uL (1.4-4.0); Lymphocytes % 18.3 % (21.3-54.2); Mean Corpuscular HGB Conc 30.9 GM/DL (32-36); Mean Corpuscular Volume 91.3 FL (87-102); Mean Platelet Volume 11.7 FL (9.6-12.0); Monocytes % 12.6 % (1.7-12.7); NRBC # 0.21 10*3/uL; Neutrophils % 62.3 % (38.7-73.9); Platelet Count 227 T/CUMM (130-400); Red Blood Count 2.41 MC/CUMM (3.8-5.5); Red Cell Distribution Width 15.6 % (9.3-17.3); White Blood Count 21.1 T/CUMM (4-12)
[2020-03-06 05:43] LABS: Calcium 8.6 MG/DL (8.5-10.1); Osmolality,Calculated 301.1 MOS/KG (273-304)
[2020-03-06 05:47] LABS: Band Neutrophils 2 % (0-10); Eosinophils 1 % (0-10); Hypochromasia 1+; Lymphocytes 9 % (20-55); Nucleated Red Blood Cells 1 (0-5); Platelet Estimate Adequate; Segmented Neutrophils 81 % (50-85); Total Cells Counted 100
[2020-03-06 05:48] LABS: Macrocytosis Slight; Ovalocytes Slight
[2020-03-06] MEDS: hydrALAZINE 25 MG TABLET PO SCH ×3 (09:15→21:10)
[2020-03-06] MEDS: METOPROLOL TARTRATE 50 MG TABLET PO SCH ×2 (09:15→21:10)
[2020-03-06] MEDS ORDERED: SODIUM CHLORIDE 0.9% 1,000 ML IV PRN (14:01)
[2020-03-06] MEDS: AZITHROMYCIN INJ 250 MG in SODIUM CHLORIDE 0.9% 150 ML IV SCH (18:18)
[2020-03-06] MEDS ORDERED: AZITHROMYCIN INJ 250 MG in SODIUM CHLORIDE 0.9% 150 ML IV SCH (18:30)
[2020-03-06] MEDS ORDERED: HEPARIN 10,000 UNIT/10 ML VIAL IV SCH (19:00)
[2020-03-06] MEDS: PANTOPRAZOLE 40 MG TABLET PO SCH (21:10)
[2020-03-06] MEDS: LATANOPROST 0.005% OPH SOLN 2.5 ML BOTTLE BOTH EYES SCH (21:55)
[2020-03-07] MEDS: SODIUM CHLORIDE 0.45% 1,000 ML IV SCH (03:38)
[2020-03-07] MEDS: cefTRIAXone 1,000 MG in SYRINGE 1 EACH IV SCH (04:47)
[2020-03-07] MEDS: INSULIN REGULAR 100 UNIT/ML SUBCUT SCH ×3 (07:25→18:18)
[2020-03-07] MEDS: hydrALAZINE 25 MG TABLET PO SCH ×3 (08:16→21:30)
[2020-03-07] MEDS: METOPROLOL TARTRATE 50 MG TABLET PO SCH ×2 (08:16→21:30)
[2020-03-07] MEDS: PANTOPRAZOLE 40 MG TABLET PO SCH ×2 (08:16→21:30)
[2020-03-07 08:29] LABS: Basophils # 0.1 10*3/uL (0.0-0.2); Basophils % 0.5 % (0.0-0.8); Eosinophils # 0.2 10*3/uL (0.0-0.87); Eosinophils % 0.8 % (0.00-10.9); Hematocrit 22.9 VOL% (35.7-47.0); Hemoglobin 7.4 GM/DL (12.0-16.0); Immature Granulocytes % 4.2 %; Immature Granulocytes Absolute 0.82 #; Lymphocytes # 4.1 10*3/uL (1.4-4.0); Lymphocytes % 20.7 % (21.3-54.2); Mean Corpuscular HGB Conc 32.3 GM/DL (32-36); Mean Corpuscular Volume 88.4 FL (87-102); Mean Platelet Volume 11.5 FL (9.6-12.0); Monocytes % 7.3 % (1.7-12.7); NRBC # 0.18 10*3/uL; Neutrophils % 66.5 % (38.7-73.9); Platelet Count 234 T/CUMM (130-400); Red Blood Count 2.59 MC/CUMM (3.8-5.5); Red Cell Distribution Width 16.3 % (9.3-17.3); White Blood Count 19.6 T/CUMM (4-12)
[2020-03-07 08:52] LABS: Lymphocytes 14 % (20-55); Nucleated Red Blood Cells 1 (0-5); Platelet Estimate Adequate; Segmented Neutrophils 83 % (50-85); Total Cells Counted 100
[2020-03-07 08:53] LABS: Hypochromasia 1+; Microcytosis Slight
[2020-03-07 09:03] LABS: Calcium 8.5 MG/DL (8.5-10.1); Osmolality,Calculated 285.4 MOS/KG (273-304)
[2020-03-07] MEDS: LATANOPROST 0.005% OPH SOLN 2.5 ML BOTTLE BOTH EYES SCH (21:30)
[2020-03-08] MEDS: INSULIN REGULAR 100 UNIT/ML SUBCUT SCH ×3 (01:30→14:45)
[2020-03-08] MEDS: hydrALAZINE 25 MG TABLET PO SCH ×2 (09:35→16:40)
[2020-03-08] MEDS: METOPROLOL TARTRATE 50 MG TABLET PO SCH (09:35)
[2020-03-08] MEDS: PANTOPRAZOLE 40 MG TABLET PO SCH (09:35)
[2020-03-08] MEDS: cefTRIAXone 1,000 MG in SYRINGE 1 EACH IV SCH (09:44)
[2020-03-08 13:37] LABS: Basophils # 0.1 10*3/uL (0.0-0.2); Basophils % 0.4 % (0.0-0.8); Eosinophils # 0.3 10*3/uL (0.0-0.87); Eosinophils % 1.7 % (0.00-10.9); Hematocrit 23.5 VOL% (35.7-47.0); Hemoglobin 7.5 GM/DL (12.0-16.0); Immature Granulocytes % 3.8 %; Lymphocytes # 3.9 10*3/uL (1.4-4.0); Lymphocytes % 21.1 % (21.3-54.2); Mean Corpuscular HGB Conc 31.9 GM/DL (32-36); Mean Corpuscular Volume 90.4 FL (87-102); Mean Platelet Volume 11.8 FL (9.6-12.0); Monocytes % 7.9 % (1.7-12.7); NRBC # 0.07 10*3/uL; Neutrophils % 65.1 % (38.7-73.9); Platelet Count 255 T/CUMM (130-400); Red Cell Distribution Width 17.1 % (9.3-17.3); White Blood Count 18.3 T/CUMM (4-12)
[2020-03-08 14:04] LABS: Eosinophils 1 % (0-10); Hypochromasia 1+; Lymphocytes 9 % (20-55); Macrocytosis Slight; Nucleated Red Blood Cells 2 (0-5); Platelet Estimate Normal; Segmented Neutrophils 87 % (50-85); Total Cells Counted 100
[2020-03-08 14:05] LABS: Polychromasia Slight
[2020-03-08 14:56] VITALS: BP 114/42
== END 2020-03-08 16:00 | DRG 682 ==
LOC: EDBD → EDUNIT# → N.ED 02:03 → SUATTDRO 05:18 → N.EDINP 05:18 → N.CC 08:42 → N.2W 03-05 13:48
PROVIDERS: ADMIT Internal Medicine; ATTEND Internal Medicine